=== PATIENT | female | born 1930 | race Caucasian/White ===

== ENCOUNTER 2018-08-27 06:01 | Inpatient (IN) | payer MEDICARE ==
--- NOTE | 2018-08-20 05:47 | HP ---
AMENDED REPORT NOW INCLUDES DESIGNATED COSIGNER CC: Dr. Jigna Sanders; Dr. Pollo Landeros; Dr. Loyd Beckett * ADMISSION HISTORY AND PHYSICAL: DATE OF ADMISSION: 08/27/18 ATTENDING SURGEON: Dr. Lucretia Morales.* (DICTATED BY MO CARCAMO) CHIEF COMPLAINT: Left breast cancer. HISTORY OF PRESENT ILLNESS: This is an 87-year-old female, who was first diagnosed with left breast cancer around February of 2017. She noted a lump in the left breast herself and biopsy confirmed carcinoma. She was treated with what sounds like tamoxifen initially but then there was obvious growth of the tumor and she was switched more recently to anastrozole. A recent CT of the chest, abdomen, and pelvis on 06/16/18 revealed a left breast mass measuring 7.7 x 5.7 cm as well as left axillary lymph nodes measuring up to 1.2 cm, which were not changed significantly from study from October of this year. Also noted were a few pulmonary nodules, which were less than 1 cm and which were without significant change from the prior study. A bone scan was performed on 06/24/18 , which was negative for metastatic bony disease. The patient had been deemed by her previous primary care provider as being too high a risk for mastectomy. More recently, the patient switched primary care providers to Dr. Pollo Landeros. A nuclear stress test was done on 06/18/18 which was a normal study and she has been cleared medically to proceed with surgery. She had been seen by Dr. Morales recently on 06/14/18 and again today to discuss the indications for surgery, the risks, benefits, and alternatives. The patient would like to proceed as scheduled with left mastectomy. PAST MEDICAL HISTORY: Left breast cancer; type 2 diabetes; hypertension; hyperlipidemia; osteoarthritis, particularly of the right hip (she is being considered for right hip replacement by Dr. Razo); history DVT of the left lower extremity, on chronic warfarin therapy; nephrolithiasis; recent recurrent UTIs with extended spectrum beta-lactamase E. coli. PAST SURGICAL HISTORY: Previous surgeries include open cholecystectomy, total hysterectomy with bilateral salpingo oophorectomy for benign disease, appendectomy, carpal tunnel release. CURRENT MEDICATIONS: 1. Warfarin 5 mg once daily (the patient instructed to hold after her 08/22/18 dose). 2. Torsemide 10 mg once daily. 3. Tradjenta 5 mg once daily. 4. Potassium citrate 10 mEq b.i.d. 5. Glimepiride 2 mg b.i.d. 6. Simvastatin 40 mg q. day. 7. Benadryl 25 mg 1 to 2 capsules q.6 hours p.r.n. 8. Jublia 10% topical for onychomycosis. 9. Tramadol 50 mg p.r.n. pain (uses up to twice daily primarily for arthritis pain). 10. Vitamin D 4000 International Units once daily. 11. Anastrozole 1 mg once daily. 12. Lisinopril 10 mg once daily. DRUG ALLERGIES: PERCOCET ([employer] side effects). SULFA, AUGMENTIN, and MACROBID have all caused itching and rash. IV CONTRAST has caused throat swelling. FAMILY HISTORY: Positive for breast and ovarian cancer in the niece. There is no known family history of anesthesia problems, bleeding or clotting disorder. SOCIAL HISTORY: The patient is currently living with her daughter. She denies use of tobacco, alcohol, or recreational drugs. REVIEW OF SYSTEMS: General: No recent constitutional symptoms or acute illnesses. She has been treated with 3 different oral antibiotics recently for ESBL UTI, but in each case, she has had significant reaction of rash and itching. She is not currently having any symptoms related to UTI and she was advised to contact Dr. Beckett's office for further recommendations. HEENT: No problems reported. Cardiovascular: Recent normal nuclear stress test. No chest pain or palpitations. Her stress test showed a normal ejection fraction. Respiratory: No chronic cough or shortness of breath. No history of PE though she has had history of thrombophlebitis and what sounds like the hypogastric vein though I did not review those records directly. She is on chronic maintenance anticoagulation. GI: No problems reported. : She has moderate- to-severe renal insufficiency based on lab work. She is being followed by Dr. Beckett for recent UTIs though is currently asymptomatic. Endocrine: She is treated for type 2 diabetes. No history of thyroid dysfunction. Her most recent A1c was 8.2. Integument: She has apparently a couple of pressure ulcers on the ischial areas bilaterally that the family has been treating with Desitin or zinc oxide. Hematological: She has had a mild anemia for the past few years. PHYSICAL EXAMINATION GENERAL: Well-nourished, obese female in no acute distress. VITAL SIGNS: Height 60 inches, weight 194 pounds. Temperature 98.4, blood pressure 148/82, pulse 90, respirations 18. HEENT: Pupils equal and round, reactive. EOMs intact. No conjunctival pallor. Oropharynx: Teeth in good repair. NECK: No lymphadenopathy or thyromegaly. LUNGS: Clear to auscultation. No rales or wheezes. HEART: Regular rate and rhythm. No murmur appreciated. ABDOMEN: Soft, nontender to palpation. No palpable masses or organomegaly. BREASTS: As previously described by Dr. Morales including large palpable mass in the left breast with more recently erosion of tumor to the skin level but without actual open draining or ulcerated lesion. BACK: No spinous process, tenderness, or CVA tenderness. EXTREMITIES: 1 to 2+ edema bilaterally, left somewhat greater than right by history. No open lesions on the feet. Distal pulses were not specifically examined on today's exam. GENITALIA/RECTAL: Not done specifically. NEUROLOGICAL: Grossly intact. She does ambulate with a rolling walker though gait was not specifically tested. SKIN: Warm and dry. No suspicious rashes or lesions noted. The area of the skin breakdown in the ischial areas is very superficial on the left, mostly with some scaling but no actual open lesion. On the right, there is an open area superficially measuring approximately 0.5 cm in diameter and without evidence of infection. IMPRESSION: Left breast cancer. PLAN: Left mastectomy. MO CARCAMO [id number]/[facility] #: [id number] [facility]ENTEREstella
[~2018-08-27 06:01] MED LIST: Buffered Lidocaine 0.9% SYRIN* 5 ML/SYR SYRINGE INTRADERM ONE; Famotidine IV* 10 MG/ML 2 ML (20 mg) IV ONE
--- OUTSIDE RECORDS SUMMARY | 2018-08-27 06:05 | XMS REPORT ---
:1930 External Reference #:[id number] Author Organization [employer] Address [address] [place] [address] Phone [phone] Care Team Providers Name Role Phone Pollo Landeros MD Primary Care Physician Unavailable Payers Type Date Identification Numbers Payment Provider Subscriber Medicare Primary Expires: Policy Number: Medicare [place] 2016 [id number] PayID: [id number] [address] [place] [address] Health Maintenance Policy Number: [employer] Medicare [place] [employer] (HMO) [id number] [employer] Group Number: [id number] [address] [address] PayID: [id number] [place] [address] Medigap Part B Expires: 10/18/2016 Policy Number: [facility] [place] [id number] PayID: [id number] [address] [address] TEQUILA Ochoa [address] Medigap Part B Expires: 10/18/2016 Policy Number: [facility] [place] [id number] Ppo PayID: [id number] [address] [address] TEQUILA Nugent [address] Problems Date Description Provider Status Onset: 05/22/2017 Localized, 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 On Warfarin. Family History Date Family Member(s) Problem(s) Comments General Diabetes General Heart Disease General Hypertension General Stroke General Cancer Father due to IA () - Age 62 Father Heart Disease Mother due to Diabetes () Mother Diabetes Type II First Son 64 First Son Diabetes First Son Deep Venous Thrombosis (DVT) Second Son 52 Second Son IA Second Son Stroke First Daughter 61 First Daughter No Current Problems Second Daughter 60 Second Daughter No Current Problems Third Daughter 54 Third Daughter No Current Problems Siblings 4 3 now Second Brother due to Prostate Cancer () First Sister 89 First Sister No Current Problems Second Sister 87 Second Sister Coronary Artery Disease (CAD) Social History Type Date Description Comments Marital Status Lives With Daughter Occupation Retired Cigarette Use Never Smoked Cigarettes ETOH Use 07/22/2018 Denies alcohol use Smoking Patient has never smoked Recreational Drug Use Denies Drug Use Exercise Type/Frequency Does not exercise Allergies, Adverse Reactions, Alerts Date Description Reaction Status Severity Comments 02/26/2017 Percocet confusion and agitation active 05/22/2017 Iodine Contrast Anaphylaxis, Urticaria active 06/09/2018 Bactrim dizziness, jittery active sensation 08/19/2018 Augmentin active rash itching 08/19/2018 Sulfa Antibiotics active rash itching 08/19/2018 Macrobid active rash itching Medications Medication Date Status Form Strength Qnty SIG Indications Ordering Provider Torsemide 07/22/ Active Tablets 10mg 30tabs 1 by mouth Pollo 2017 every day Kristie Landeros M.D.,FACP Tradjenta 06/28/ Active Tablets 5mg 30tabs Take one Pollo 2018 tablet by yared Santiago.Kristie,FACP daily. Freestyle 06/18/ Active Strips 100uni test up to E11.9 Karen Lite Test 2018 ts three Cotton, times M.D. daily last visit: 06/09/18 Freestyle 06/18/ Active Device 1units test blood E11.9 Karen Lite Blood 2018 sugar 3 Cotton, Glucose times M.D. Monitoring daily last System visit: 06/09/18 Freestyle 06/18/ Active Misc 100uni test three E11.9 Karen Zhang 2018 ts times Santos, daily last M.D. visit: 06/09/18 Nystatin-Tria 06/09/ Active Cream 438473-3.1 15gm apply to L30.4 Maryann love 2018 Unit/GM-% breast 2-3 Van. Leti, times M.DKam,FACP daily until symptoms resolve. Tramadol HCL 05/22/ Active Tablets 50mg 45tabs 1/2 to 1 M25.551 Kina 2016 tablet by Jose Razo mouth every 4 hours as needed pain Simvastatin / Active Tablets 40mg take 1 Unknown 0000 tablet by mouth at bedtime Glimepiride / Active Tablets 2mg 180tab 1 by mouth Pollo 0000 s twice Kristie Landeros, daily M.DKam,FACP Potassium / Active Tablets ER 10Meq 1 tablet Unknown Citrate ER 0000 (1080 mg) by mouth twice a day Lisinopril / Active Tablets 10mg 90tabs 1 by mouth Karen every day Jose Graham Warfarin / Active Tablets 5mg take as Unknown Sodium 0000 directed Anastrozole / Active Tablets 1mg once daily Unknown 0000 Vitamin D / Active Capsules 4000Unit 1 by mouth Unknown (Ergocalcifer 0000 every day ol) Jublia / Active Solution 10% apply once Unknown 0000 daily Benadryl / Active Tablets 25mg take Unknown Allergy 0000 one-two tablet every 6 hours as needed for itch/ rash Tradjenta 06/28/ Hx Tablets 5mg 30tabs Take one Pollo 2017 - tablet by Kristie Landeros, 06/28/ mouth MCaren,FACP 2018 daily. Tradjenta 06/25/ Hx Tablets 5mg 30tabs 1 by mouth Karen 2017 - every day Santos 06/28/ Jose 2018 Furosemide 07/06/ Hx 12.5 Kina 2016 - Jose Razo 2017 Fish Oil / Hx Capsules 1000mg 1 by mouth Unknown 0000 every day Womens One 00/00/ Hx Tablets 1 by mouth Unknown Daily 0000 every day (on occassion) Lisinopril /00/ Hx Tablets 10mg 1 by mouth Unknown 0000 - every day 2016 Naproxen 00/ Hx Tablets 500mg 1 tablet Unknown 0000 - with food 07/05/ by mouth 2016 twice a day Mobic 00/ Hx Tablets 15mg once daily Unknown 0000 with food Hydrocodone-A / Hx Tablets 5-325mg 1-2 tabs Unknown cetaminophen 0000 by mouth every 4- 6 hours as needed pain Tomoxifin /00/ Hx Unknown 0000 Warfarin 00/ Hx Unknown Sodium 0000 Tamoxifen 00/ Hx Tablets 20mg Unknown Citrate 0000 - 2017 Naproxen 00/ Hx Tablets 500mg 1 tablet Unknown 0000 with food by mouth twice a day Torsemide / Hx Tablets 5mg 1 by mouth Unknown 0000 - every day 2017 Medications Administered in Office Medication Date Status Form Strength Qnty SIG Indications Ordering Provider Inj, Administered Injection John D. Regadenoson, 018 Jose Pope 0.1 MG Technetium TC Administered Injection John Flowers 99M 018 Jose Pope Tetrofosmin, Per Unit Dose Up To 40 Millicuries Immunizations CPT Code Status Date Vaccine Lot # [id number] Given 07/22/2018 Influenza Virus Vaccine, Quadrivalent, Split, [id number] Preservative Free Vital Signs Date Vital Result Comment 08/19/2018 Height 60 inches 5'0" Weight 194.00 lb Heart Rate 90 /min BP Systolic Sitting 148 mmHg BP Diastolic Sitting 82 mmHg Respiratory Rate 18 /min Body Temperature 98.4 F BMI (Body Mass Index) 37.9 kg/m2 07/22/2018 Weight 194.00 lb Heart Rate 74 /min BP Systolic Sitting 138 mmHg BP Diastolic Sitting 80 mmHg Body Temperature 98.7 F O2 % BldC Oximetry 97 % 06/14/2018 Heart Rate 76 /min Respiratory Rate 18 /min Body Temperature 99.7 F 06/09/2018 Height 60 inches 5'0" Weight 182.00 lb Heart Rate 58 /min BP Systolic 130 mmHg BP Diastolic 62 mmHg O2 % BldC Oximetry 94 % BMI (Body Mass Index) 35.5 kg/m2 08/04/2017 Heart Rate 80 /min Respiratory Rate 16 /min Body Temperature 99.0 F 07/06/2017 Height 60 inches 5'0" Weight 194.00 lb Heart Rate 83 /min BP Systolic 173 mmHg BP Diastolic 71 mmHg Body Temperature 97.7 F BMI (Body Mass Index) 37.9 kg/m2 05/22/2017 Height 60 inches 5'0" Weight 200.00 lb Heart Rate 76 /min BP Systolic 173 mmHg BP Diastolic 80 mmHg Body Temperature 99.0 F Pain Level 6 BMI (Body Mass Index) 39.1 kg/m2 03/31/2017 Heart Rate 72 /min Respiratory Rate 18 /min Body Temperature 98.3 F 03/05/2017 Heart Rate 84 /min BP Systolic 150 mmHg BP Diastolic 80 mmHg Respiratory Rate 18 /min Body Temperature 98.4 F 03/02/2017 Height 61 inches 5'1" Weight 197.00 lb Heart Rate 78 /min BP Systolic 138 mmHg BP Diastolic 88 mmHg Respiratory Rate 16 /min Body Temperature 98.7 F BMI (Body Mass Index) 37.2 kg/m2 Results Test Date Test Result H/L Range Note Urine Microalbumin Random 08/16/2018 Ur Microalbumin (mg/L) 25.0 Urine Creatinine 106.74 mg/dL Urine Microalbumin/Creatinine 23.4 <31 Lipid Profile (Trig/Chol/HDL) 08/16/2018 Triglycerides 240 mg/dL 1 Cholesterol 148 mg/dL 2 HDL Cholesterol 40.1 mg/dL 3 LDL Cholesterol 60 mg/dL 4 Basic Metabolic Panel 08/16/2018 Sodium 135 mmol/L 135-145 Potassium 4.4 mmol/L 3.5-5.0 Chloride 101 mmol/L 101-111 Co2 Carbon Dioxide 25 mmol/L 22-32 Anion Gap 9 mmol/L 2-11 Glucose 103 mg/dL High 70-100 Blood Urea Nitrogen 31 mg/dL High 6-24 Creatinine 1.63 mg/dL High 0.51-0.95 BUN/Creatinine Ratio 19.0 8-20 Calcium 8.8 mg/dL 8.6-10.3 Egfr Non- 29.9 >60 Egfr 36.2 >60 5 Laboratory test finding 08/16/2018 Hemoglobin A1c (Glyco 8.2 % High 4.0- 5.6 6 HGB) Laboratory test finding 06/11/2018 Hemoglobin A1c (Glyco 8.3 % High 4.0- 5.6 7 HGB) CBC Auto Diff 06/11/2018 White Blood Count 7.8 10^3/uL 3.5-10.8 Red Blood Count 3.60 10^6/uL Low 4.00-5.40 Hemoglobin 10.9 g/dL Low 12.0-16.0 Hematocrit 32 % Low 35-47 Mean Corpuscular Volume 90 fL 80-97 Mean Corpuscular Hemoglobin 30 pg 27-31 Mean Corpuscular HGB Conc 34 g/dL 31-36 Red Cell Distribution Width 14 % 10.5-15 Platelet Count 225 10^3/uL 150-450 Mean Platelet Volume 8.7 um3 7.4-10.4 Abs Neutrophils 5.1 10^3/uL 1.5-7.7 Abs Lymphocytes 2.2 10^3/uL 1.0-4.8 Abs Monocytes 0.4 10^3/uL 0-0.8 Abs Eosinophils 0.1 10^3/uL 0-0.6 Abs Basophils 0 10^3/uL 0-0.2 Abs Nucleated RBC 0 10^3/uL Granulocyte % 64.8 % 38-83 Lymphocyte % 27.5 % 25-47 Monocyte % 5.7 % 0-7 Eosinophil % 1.7 % 0-6 Basophil % 0.3 % 0-2 Nucleated Red Blood Cells % 0.1 Comp Metabolic Panel 06/11/2018 Sodium 137 mmol/L 135-145 Potassium 4.3 mmol/L 3.5-5.0 Chloride 102 mmol/L 101-111 Co2 Carbon Dioxide 26 mmol/L 22-32 Anion Gap 9 mmol/L 2-11 Glucose 193 mg/dL High 70-100 Blood Urea Nitrogen 33 mg/dL High 6-24 Creatinine 1.31 mg/dL High 0.51-0.95 BUN/Creatinine Ratio 25.2 High 8-20 Calcium 8.9 mg/dL 8.6-10.3 Total Protein 6.4 g/dL 6.4-8.9 Albumin 3.5 g/dL 3.2-5.2 Globulin 2.9 g/dL 2-4 Albumin/Globulin Ratio 1.2 1-3 Total Bilirubin 0.40 mg/dL 0.2-1.0 Alkaline Phosphatase 55 U/L 34-104 Alt 8 U/L 7-52 Ast 14 U/L 13-39 Egfr Non- 38.5 >60 Egfr 46.6 >60 8 Inr/Protime 03/22/2018 Inr 3.02 High 0.77-1.02 Inr/Protime 11/16/2017 Inr 2.13 High 0.77-1.02 Inr/Protime 10/29/2017 Inr 2.15 High 0.77-1.02 9 CBC Auto Diff 10/29/2017 White Blood Count 7.8 10^3/uL 3.5-10.8 9 Red Blood Count 3.79 10^6/uL Low 4.0-5.4 9 Hemoglobin 11.7 g/dL Low 12.0-16.0 9 Hematocrit 36 % 35-47 9 Mean Corpuscular Volume 94 fL 80-97 9 Mean Corpuscular Hemoglobin 31 pg 27-31 9 Mean Corpuscular HGB Conc 33 g/dL 31-36 9 Red Cell Distribution Width 15 % 10.5-15 9 Platelet Count 201 10^3/uL 150-450 9 Mean Platelet Volume 9 um3 7.4-10.4 9 Abs Neutrophils 5.2 10^3/uL 1.5-7.7 9 Abs Lymphocytes 2.1 10^3/uL 1.0-4.8 9 Abs Monocytes 0.3 10^3/uL 0-0.8 9 Abs Eosinophils 0.1 10^3/uL 0-0.6 9 Abs Basophils 0.1 10^3/uL 0-0.2 9 Abs Nucleated RBC 0 10^3/uL 9 Granulocyte % 66.5 % 38-83 9 Lymphocyte % 27.1 % 25-47 9 Monocyte % 4.4 % 1-9 9 Eosinophil % 1.3 % 0-6 9 Basophil % 0.7 % 0-2 9 Nucleated Red Blood Cells % 0.2 9 Comp Metabolic Panel 10/29/2017 Sodium 134 mmol/L 133-145 9 Potassium 4.2 mmol/L 3.5-5.0 9 Chloride 100 mmol/L Low 101-111 9 Co2 Carbon Dioxide 24 mmol/L 22-32 9 Anion Gap 10 mmol/L 2-11 9 Glucose 152 mg/dL High 70-100 9 Blood Urea Nitrogen 25 mg/dL High 6-24 9 Creatinine 1.38 mg/dL High 0.51-0.95 9 BUN/Creatinine Ratio 18.1 8-20 9 Calcium 9.0 mg/dL 8.6-10.3 9 Total Protein 6.9 g/dL 6.4-8.9 9 Albumin 3.7 g/dL 3.2-5.2 9 Globulin 3.2 g/dL 2-4 9 Albumin/Globulin Ratio 1.2 1-3 9 Total Bilirubin 0.40 mg/dL 0.2-1.0 9 Alkaline Phosphatase 51 U/L 34-104 9 Alt 8 U/L 7-52 9 Ast 13 U/L 13-39 9 Egfr Non- 36.3 >60 9 Egfr 46.7 >60 9, 10 Inr/Protime 08/17/2017 Inr 2.39 High 0.89-1.11 Laboratory test finding 08/17/2017 TSH (Thyroid Stim 9.33 mcIU/mL High 0.34-5.60 11 Horm) Hemoglobin A1c (Glyco HGB) 8.2 % High 4.0-5.6 12 Iron & Iron Binding Capacity 08/17/2017 Iron 49 g/dL Low 50-212 Unsaturated Iron Binding 242 g/dL Total Iron Binding Capacity 291 g/dL 250-450 % Iron Saturation 17 % 15-55 Lipid Profile (Trig/Chol/HDL) 08/17/2017 Triglycerides 220 mg/dL 13 Cholesterol 155 mg/dL 14 HDL Cholesterol 47.0 mg/dL 15 LDL Cholesterol 64 mg/dL 16 Comp Metabolic Panel 08/17/2017 Sodium 136 mmol/L 133-145 Potassium 4.3 mmol/L 3.5-5.0 Chloride 103 mmol/L 101-111 Co2 Carbon Dioxide 23 mmol/L 22-32 Anion Gap 10 mmol/L 2-11 Glucose 158 mg/dL High 70-100 Blood Urea Nitrogen 25 mg/dL High 6-24 Creatinine 1.22 mg/dL High 0.51-0.95 BUN/Creatinine Ratio 20.5 High 8-20 Calcium 9.0 mg/dL 8.6-10.3 Total Protein 6.6 g/dL 6.4-8.9 Albumin 3.8 g/dL 3.2-5.2 Globulin 2.8 g/dL 2-4 Albumin/Globulin Ratio 1.4 1-3 Total Bilirubin 0.50 mg/dL 0.2-1.0 Alkaline Phosphatase 62 U/L 34-104 Alt 7 U/L 7-52 Ast 11 U/L Low 13-39 Egfr Non- 41.9 >60 Egfr 53.9 >60 17 CBC Auto Diff 08/17/2017 White Blood Count 8.5 10^3/uL 3.5-10.8 Red Blood Count 3.88 10^6/uL Low 4.0-5.4 Hemoglobin 11.6 g/dL Low 12.0-16.0 Hematocrit 35 % 35-47 Mean Corpuscular Volume 91 fL 80-97 Mean Corpuscular Hemoglobin 30 pg 27-31 Mean Corpuscular HGB Conc 33 g/dL 31-36 Red Cell Distribution Width 14 % 10.5-15 Platelet Count 258 10^3/uL 150-450 Mean Platelet Volume 9 um3 7.4-10.4 Abs Neutrophils 5.1 10^3/uL 1.5-7.7 Abs Lymphocytes 2.6 10^3/uL 1.0-4.8 Abs Monocytes 0.5 10^3/uL 0-0.8 Abs Eosinophils 0.2 10^3/uL 0-0.6 Abs Basophils 0.1 10^3/uL 0-0.2 Abs Nucleated RBC 0.01 10^3/uL Granulocyte % 60.2 % 38-83 Lymphocyte % 30.9 % 25-47 Monocyte % 5.9 % 1-9 Eosinophil % 2.1 % 0-6 Basophil % 0.9 % 0-2 Nucleated Red Blood Cells % 0.1 Inr/Protime 08/13/2017 Inr 3.61 High 0.89-1.11 Basic Metabolic Panel 06/25/2017 Sodium 135 mmol/L 133-145 Potassium 4.6 mmol/L 3.5-5.0 Chloride 105 mmol/L 101-111 Co2 Carbon Dioxide 22 mmol/L 22-32 Anion Gap 8 mmol/L 2-11 Glucose 206 mg/dL High 70-100 Blood Urea Nitrogen 33 mg/dL High 6-24 Creatinine 1.31 mg/dL High 0.51-0.95 BUN/Creatinine Ratio 25.2 High 8-20 Calcium 8.9 mg/dL 8.6-10.3 Egfr Non- 38.6 >60 Egfr 49.6 >60 18 Laboratory test finding 03/09/2017 Blood Urea Nitrogen BUN 29 mg/dL High 6 -24 Creatinine 03/09/2017 Creatinine 1.27 mg/dL High 0.51-0.95 Egfr Non- 40.0 >60 Egfr 51.4 >60 19 Laboratory test finding 03/05/2017 Cytology Non-Associate Merchandiser SEE RESULT BELOW 20 , 21 Laboratory test finding 03/02/2017 Cytology Non-Associate Merchandiser SEE RESULT BELOW 22 1 Desirable: <150 Borderline High: 150-199 High: 200-499 Very High: >500 2 Desirable: <200 Borderline High: 200-239 High: >239 3 Low: <40 Desirable: 40-60 High: >60 4 Desirable: <100 Near Optimal: 100-129 Borderline High: 130-159 High: 160-189 Very High: >189 5 Because ethnic data is not always readily available, this report includes an eGFR for both -Americans and non- Americans. The National Kidney Disease Education Program (NKDEP) does not endorse the use of the MDRD equation for patients that are not between the ages of 18 and 70, are , have extremes of body size, muscle mass, or nutritional status, or are non- or non-. According to the National Kidney Foundation, irrespective of diagnosis, the stage of the disease is based on the level of kidney function: Stage Description GFR(mL/min/1.73 m(2)) 1 Kidney damage with normal or decreased GFR 90 2 Kidney damage with mild decrease in GFR 60-89 3 Moderate decrease in GFR 30-59 4 Severe decrease in GFR 15-29 5 Kidney failure <15 (or dialysis) 6 Therapeutic target for the treatment of diabetes mellitus patients is <7% HBA1C, and in selective patients <6.0%. Please refer to [place] [employer] diabetic care guidelines for further information. 7 Therapeutic target for the treatment of diabetes mellitus patients is <7% HBA1C, and in selective patients <6.0%. Please refer to [place] [employer] diabetic care guidelines for further information. 8 Because ethnic data is not always readily available, this report includes an eGFR for both -Americans and non- Americans. The National Kidney Disease Education Program (NKDEP) does not endorse the use of the MDRD equation for patients that are not between the ages of 18 and 70, are , have extremes of body size, muscle mass, or nutritional status, or are non- or non-. According to the National Kidney Foundation, irrespective of diagnosis, the stage of the disease is based on the level of kidney function: Stage Description GFR(mL/min/1.73 m(2)) 1 Kidney damage with normal or decreased GFR 90 2 Kidney damage with mild decrease in GFR 60-89 3 Moderate decrease in GFR 30-59 4 Severe decrease in GFR 15-29 5 Kidney failure <15 (or dialysis) 9 System Event: N 10 Because ethnic data is not always readily available, this report includes an eGFR for both -Americans and non- Americans. The National Kidney Disease Education Program (NKDEP) does not endorse the use of the MDRD equation for patients that are not between the ages of 18 and 70, are , have extremes of body size, muscle mass, or nutritional status, or are non- or non-. According to the National Kidney Foundation, irrespective of diagnosis, the stage of the disease is based on the level of kidney function: Stage Description GFR(mL/min/1.73 m(2)) 1 Kidney damage with normal or decreased GFR 90 2 Kidney damage with mild decrease in GFR 60-89 3 Moderate decrease in GFR 30-59 4 Severe decrease in GFR 15-29 5 Kidney failure <15 (or dialysis) 11 [id number] 12 Therapeutic target for the treatment of diabetes mellitus patients is <7% HBA1C, and in selective patients <6.0%. Please refer to [place] [employer] diabetic care guidelines for further information. 13 Desirable: <150 Borderline High: 150-199 High: 200-499 Very High: >500 14 Desirable: <200 Borderline High: 200-239 High: >239 15 Low: <40 Desirable: 40-60 High: >60 16 Desirable: <100 Near Optimal: 100-129 Borderline High: 130-159 High: 160-189 Very High: >189 17 Because ethnic data is not always readily available, this report includes an eGFR for both -Americans and non- Americans. The National Kidney Disease Education Program (NKDEP) does not endorse the use of the MDRD equation for patients that are not between the ages of 18 and 70, are , have extremes of body size, muscle mass, or nutritional status, or are non- or non-. According to the National Kidney Foundation, irrespective of diagnosis, the stage of the disease is based on the level of kidney function: Stage Description GFR(mL/min/1.73 m(2)) 1 Kidney damage with normal or decreased GFR 90 2 Kidney damage with mild decrease in GFR 60-89 3 Moderate decrease in GFR 30-59 4 Severe decrease in GFR 15-29 5 Kidney failure <15 (or dialysis) 18 Because ethnic data is not always readily available, this report includes an eGFR for both -Americans and non- Americans. The National Kidney Disease Education Program (NKDEP) does not endorse the use of the MDRD equation for patients that are not between the ages of 18 and 70, are , have extremes of body size, muscle mass, or nutritional status, or are non- or non-. According to the National Kidney Foundation, irrespective of diagnosis, the stage of the disease is based on the level of kidney function: Stage Description GFR(mL/min/1.73 m(2)) 1 Kidney damage with normal or decreased GFR 90 2 Kidney damage with mild decrease in GFR 60-89 3 Moderate decrease in GFR 30-59 4 Severe decrease in GFR 15-29 5 Kidney failure <15 (or dialysis) 19 Because ethnic data is not always readily available, this report includes an eGFR for both -Americans and non- Americans. The National Kidney Disease Education Program (NKDEP) does not endorse the use of the MDRD equation for patients that are not between the ages of 18 and 70, are , have extremes of body size, muscle mass, or nutritional status, or are non- or non-. According to the National Kidney Foundation, irrespective of diagnosis, the stage of the disease is based on the level of kidney function: Stage Description GFR(mL/min/1.73 m(2)) 1 Kidney damage with normal or decreased GFR 90 2 Kidney damage with mild decrease in GFR 60-89 3 Moderate decrease in GFR 30-59 4 Severe decrease in GFR 15-29 5 Kidney failure <15 (or dialysis) 20 [id number] 21 SEE RESULT BELOW Name: [place] : [address]: Lucretia Morales MD Acct: [id number] Unit: [id number] AGE: 86 Location: [facility] Re03/05/17 SEX: F Status: REG REF SPEC: [id number] BERYL: 03/05/17-[address]: Lucretia Morales MD REQ: [id number] RECD: 03/05/17 STATUS: SOUT _ ORDERED: LEVEL 4, IMMUNO-QUANT/3 COMMENTS: [id number] FINAL DIAGNOSIS Breast, left, fine needle aspiration, cell block: -- Adenocarcinoma; see comment. COMMENT: Immunohistochemical stains, with appropriately reacting controls, were performed with the following results: ER strongly positive, nearly 100% of tumor cells IN negative HER-2/bret negative (0+) BREAST LEFT - FINE NEEDLE ASPIRATION LEFT BREAST MASS CLINICAL HISTORY Recent breast cancer diagnosis by [facility] GROSS DESCRIPTION 20 ml markedly blood formalin, needle rinse in formalin for cell block. Signed (signature on file) Shalini Zamorano MD 1222 END OF REPORT * ML=Testing performed at Main Lab DEPARTMENT OF PATHOLOGY, [address] [place] [address] Duarte Malin M.D. Director [facility]GAR # [id number] 22 SEE RESULT BELOW Name: [place] : [address]: Lucretia Morales MD Acct: [id number] Unit: [id number] AGE: 86 Location: [facility] Re03/02/17 SEX: F Status: REG REF SPEC: [id number] BERYL: 03/02/17-[address]: Lucretia Morales MD REQ: [id number] RECD: 03/02/179260 STATUS: SOUT _ [facility] COMMENTS: [id number] FINAL DIAGNOSIS Breast, left, fine needle aspiration: --Malignant- adenocarcinoma. COMMENT: Dr. Malin reviewed this case in intradepartmental consultation and agrees with the diagnosis. BREAST LEFT - LEFT BREAST FINE NEEDLE ASPIRATION CLINICAL HISTORY Left breast. GROSS DESCRIPTION 2 Alcohol fixed slide(s) received from clinician and Needle rinse in CytoLyt solution for thin layer non-online marketing manager test.(turbid pink) Signed (signature on file) Shalini Zamorano MD 1219 END OF REPORT * ML=Testing performed at Main Lab DEPARTMENT OF PATHOLOGY, [address] [place] [address] Duarte Malin M.D. Director [facility] # [id number] Procedures Date CPT Code Description Status 06/18/2018 87668 Stress Test Completed 06/18/2018 59277 Myocardial Perfusion Imaging Tomographic (Spect) Completed Multiple Studies 06/09/2018 41629 EKG Tracing & Interpretation Completed 03/05/2017 13170 Fine Needle Aspiration; W/O Imaging Guidance Completed 03/02/2017 80762 Fine Needle Aspiration; W/O Imaging Guidance Completed 01/16/2014 44661 ECHO Transthorasic Realtime 2D W Doppler & Color Flow Completed Hosp 01/16/2014 54267 EKG, Interpretation Only Completed 01/15/2014 96574 EKG, Interpretation Only Completed Encounters Type Date Location Provider [facility] E/M Dx Office Visit 07/22/2018 4:20p [facility] Internal Medicine Pollo Landeros, [address] E11.9 - [place] Garcia,FACP I10 C50.412 Z23 Office Visit 06/14/2018 3:00p [facility], 26394 C50.412 Stevie ECHEVERRIA Office Visit 06/09/2018 1:00p [facility] Internal Medicine Jenny Zuhair, [address] E11.[address] - [address] RPA-C M16.11 C50.412 E78.5 I10 R06.02 L89.302 L30.4 I82.812 Z01.818 Office Visit 08/04/2017 2:45p [facility], 32305 C50.412 Stevie ECHEVERRIA Office Visit 07/06/2017 3:30p [facility] Razo M.D. 41141 M25.551 C.M.AKam M16.11 C50.412 N63 Office Visit 05/22/2017 1:30p [facility] R[facility] M.D. 91433 M25.551 Rey M25.552 M16.11 M16.12 C50.412 Office Visit 03/31/2017 9:00a [facility], 33941 C50.412 Stevie ECHEVERRIA Office Visit 03/02/2017 2:00p [facility], 67974 N63 Stevie ECHEVERRIA Office Visit 03/11/2014 3:23p [facility], [place], [address] 595.0 Hospitalists MCaren 995.91 250.00 593.5 Office Visit 03/10/2014 8[facility]07[facility] [place], [address] 595.0 Hospitalists Jose 995.91 250.00 593.5 Office Visit 03/09/2014 8:07a [facility], [place], [address] 595.0 Hospitalists MCaren 995.91 250.00 Office Visit 03/08/2014 [facility] [facility] [place] [address] 595.0 Assoc, Hospitalюлия Garcia [phone] Office Visit 01/18/2014 3:33p [facility], Miki Díaz [id number] 595.0 Hospitalists Jose Wilder 995.91 [phone] Office Visit 01/17/2014 3:32p [facility] [place] [facility]az [address]657 595.0 Hospitalists Jose Wilder 995.91 [phone] Office Visit 01/16/2014 3:32p [facility], Eduarda Gonzalez, 31608 595.0 Hospitalists Jose 995.91 592.0 411.89 Office Visit 01/15/2014 3:31p [facility], Eduarda Gonzalez, 88398 595.0 Hospitalists Jose 995.91 592.0 411.89 Plan of Care Future Appointment(s):09/06/2018 2:00 pm - Yasmani Jean PA at [facility]08/30/2018 11:15 am - MO Bang at [facility]08/27/2018 8:00 am - Lisa Peña MD at [facility]08/27/2018 8:00 am - Lucretia Morales MD at 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
[2018-08-27] MEDS ORDERED: Famotidine IV* 10 MG/ML 2 ML (20 mg) ONE (06:11)
[2018-08-27] MEDS ORDERED: ceFAZolin 2 GM PREMIX in ORs 2 GM/50 ML BAG IVPB ONE (06:11)
[2018-08-27] MEDS ORDERED: Heparin VIAL(*) 5000 UNITS/ML VIAL (FIVE THOUSAND) ONE (06:11)
[2018-08-27] MEDS ORDERED: Bupivacaine 0.5% SDV PF* 30ML VIAL ONE (06:56)
[2018-08-27] MEDS ORDERED: Bupivacaine 0.25% W/EPI* 10 ML SDV ONE (06:56)
[2018-08-27] MEDS ORDERED: Lidocaine 2% PF * 5 ML VIAL ONE (07:19)
[2018-08-27] MEDS ORDERED: Midazolam* 1 MG/ML 5 ML VIAL (5 MG) ONE (07:19)
[2018-08-27] MEDS ORDERED: Dexamethasone IV* 4 MG/ML 1 ML (4 MG) ONE (07:19)
[2018-08-27] MEDS ORDERED: fentaNYL* 50 MCG/ML 2 ML VIAL (100 MCG VIAL) ONE ×4 (07:19→10:42)
[2018-08-27] MEDS ORDERED: KETAMINE HCL* 50 MG/ML 10 ML VIAL ONE (07:19)
[2018-08-27] MEDS ORDERED: Ondansetron INJ* 2 MG/ML VIAL ONE (07:19)
[2018-08-27] MEDS ORDERED: Propofol* 10 MG/ML 20 ML BTL IV PUSH ONE (07:19)
[2018-08-27] MEDS ORDERED: Morphine VIAL* 4 MG/ML VIAL (1 ml vial) IV ONE (07:20)
[2018-08-27] MEDS ORDERED: EPHEDrine (Pressors)* 50 MG/ML VIAL ONE (07:59)
[2018-08-27] MEDS ORDERED: Naloxone* 0.4 MG/ML 1 ML VIAL IV PRN (08:46)
[2018-08-27] MEDS ORDERED: Ondansetron INJ* 2 MG/ML VIAL IV PRN ×2 (08:46→12:18)
[2018-08-27] MEDS ORDERED: DiMENhydriNATE IV* 50 MG/ML VIAL IV PUSH PRN (08:46)
[2018-08-27] MEDS ORDERED: Acetaminophen IV 1GM/100ML * 1,000 MG/100 ML VIAL IVPB ONE (08:46)
[2018-08-27] MEDS ORDERED: Ketorolac INJ* 30 MG/ML 1 ML VIAL ONE (09:14)
[2018-08-27] MEDS ORDERED: Acetaminophen IV 1GM/100ML * 100 ML ONE (09:24)
[2018-08-27] MEDS ORDERED: traMADol TAB* 50 MG PO PRN (10:34)
--- NOTE | 2018-08-27 10:39 | BRIEFOPN ---
Brief Operative Note - Surgery Procedures: Procedures INJECT ANTICOAGULANT (03/08/14) RETROGRADE PYELOGRAM (03/08/14) ULTRASON FRAGMENT-STONE (03/08/14) URETERAL CATHETERIZATION (03/08/14) 08/27/18 Op note Pre-op dx: left breast cancer Post-op dx: same Procedure: left mastectomy surgeon: Andrew Peña Anesth: general EBL: 50 cc Complications: none SCDs on during surgery Abx: given pre-op CLFoster
[2018-08-27] MEDS: fentaNYL* 50 MCG/ML 2 ML VIAL (100 MCG VIAL) IV PRN ×3 (10:44→11:12)
[2018-08-27] MEDS ORDERED: Ibuprofen TAB* 600 MG PO PRN (12:18)
[2018-08-27] MEDS ORDERED: diPHENhydraMINE PO* 25 MG PO PRN (12:18)
[2018-08-27] MEDS ORDERED: traMADol TAB* 50 MG ONE (12:58)
[2018-08-27] MEDS: traMADol TAB* 50 MG PO PRN ×2 (13:01→19:11)
[2018-08-27] MEDS: Atorvastatin* 20 MG TAB PO SCH (17:31)
[2018-08-27] MEDS: Acetaminophen TAB* 325 MG PO PRN ×2 (17:31→23:04)
[2018-08-27] MEDS: Lisinopril TAB* 10 MG PO SCH (17:31)
[2018-08-27] MEDS: CMCS:Glimepiride (NF) 2 MG TAB PO SCH (17:32)
[2018-08-27] MEDS: PTO:Potassium Citrate (NF) 10 MEQ TAB PO SCH (20:18)
[2018-08-27] MEDS ORDERED: PTO: Potassium Citrate (NF) 10 MEQ TAB PO SCH (21:00)
[2018-08-27] MEDS ORDERED: GLIMEPIRIDE 2 MG PO SCH (21:00)
[2018-08-27] MEDS ORDERED: Insulin LISPRO* 1 UNITS UNIT SUBCUT ONE (23:45)
--- NOTE | 2018-08-28 01:25 | OP ---
[facility]: [facility]; Dr. Jigna Sanders; MO Peterson OPERATIVE REPORT: DATE OF OPERATION: 08/27/18 DATE OF : 32 SURGEON: Lucretia Morales MD LEAD SECURITY OFFICER: Dr. Peña. PRE-OP DIAGNOSIS: Left breast cancer. POST-OP DIAGNOSIS: Left breast cancer. OPERATIVE PROCEDURE: Left mastectomy. INDICATIONS: Ms. Mortensen is an 87-year-old woman with a large unknown breast cancer who has been u ndergoing neoadjuvant hormonal therapy, which has not made a lot of change recently, prompting the pl an for surgical intervention. DESCRIPTION OF PROCEDURE: She was brought to the operating room and placed on the OR table in a supi ne position and given general anesthesia. The left breast was prepped and draped in the usual steril e fashion. An incision was made in the superior breast to encompass the mass and the nipple-areolar complex and subcutaneous tissue was divided with electrocautery to create flaps medially to the fr[place] um, superiorly to the clavicle and laterally to the latissimus dorsi muscle. Then an inferior incisio n was made creating an ellipse around the nipple-areolar complex and the mass. Again, subcutaneous t issue was divided with electrocautery medially to the sternum, inferiorly to the rectus muscle and la terally to the latissimus dorsi muscle. Breast was then elevated off the chest wall using electrocau ciera, attempted to include some muscle fibers in the region under the mass. Once the breast was off the chest wall, it was handed off as a specimen with the usual markings. Attention was then turned t o closing the incision. It appeared that the cosmetic closure would involved drawing some of the lat eral skin up into the wound creating a Y-shaped closure. In order to do this, some excess skin was r emoved superiorly and inferiorly and handed off as a specimen. The 2-0 Vicryl was used to reapproxim ate the subcutaneous tissue and then 3-0 Vicryl was used to complete the reapproximation of the subcu taneous tissue in between the sterile stitches and then the skin was closed with 4-0 Vicryl in a subc uticular fashion in order to make the closure as full as possible in the lateral aspect. Some additio nal skin was removed from the inferior aspect of the transversely oriented y. Steri-Strips and a dry fluffy dressing were applied after a EMILY drain was placed through the stab wound in the anterior axil mary carmen line and placed under the skin flaps. Some local was instilled through the EMILY drain and allowed to dehisce the cavity. An Miko wrap was placed around the chest. All sponge and instrument counts w ere correct. The patient tolerated the procedure well and was transferred to Recovery in a stable co ndition. [id number]/[facility] #: [id number]
[2018-08-28] MEDS: Acetaminophen TAB* 325 MG PO PRN ×4 (02:56→17:35)
[2018-08-28] MEDS: traMADol TAB* 50 MG PO PRN ×4 (02:56→22:52)
[2018-08-28] MEDS: PTO:Potassium Citrate (NF) 10 MEQ TAB PO SCH ×2 (08:06→20:41)
[2018-08-28] MEDS: PTO:Linagliptin (NF) 5 MG TAB PO SCH (08:06)
[2018-08-28] MEDS: CMCS:Anastrozole (NF) 1 MG TAB PO SCH (08:06)
[2018-08-28] MEDS: CMCS:Glimepiride (NF) 2 MG TAB PO SCH ×2 (08:07→17:35)
[2018-08-28] MEDS: Torsemide TAB* 20 MG PO SCH (08:07)
[2018-08-28] MEDS: Cholecalciferol TAB* 1000 UNITS PO SCH (08:07)
[2018-08-28] MEDS: JUBLIA TOPICAL SCH (08:08)
[2018-08-28] MEDS ORDERED: LINAGLIPTIN 5 MG PO SCH (09:00)
[2018-08-28] MEDS ORDERED: Torsemide TAB* 20 MG PO SCH (09:00)
[2018-08-28] MEDS ORDERED: CMC: Anastrozole (NF) 1 MG TAB PO SCH (09:00)
[2018-08-28] MEDS ORDERED: Lisinopril TAB* 10 MG PO SCH (09:00)
--- NOTE | 2018-08-28 09:19 | PN ---
Progress Note - Progress Note Date of Service: 08/28/18 Note: Surgery Ms. Mortensen says she is "taking pain medicine whenever they offer it", but otherwise feels fine. She had an episode of elevated blood sugar last night and the hospitalists have been consulted to see and help manage her glucose. Vital Signs 08/27/18 08/27/18 08/27/18 10:01 10:02 10:05 Temperature 97.5 F Pulse Rate 90 89 90 Respiratory 16 18 Rate Blood Pressure 134/64 137/67 (mmHg) O2 Sat by Pulse 99 99 99 Oximetry 08/27/18 08/27/18 08/27/18 10:10 10:15 10:30 Temperature Pulse Rate 85 83 84 Respiratory 19 16 27 Rate Blood Pressure 126/58 121/58 124/61 (mmHg) O2 Sat by Pulse 98 98 96 Oximetry 08/27/18 08/27/18 08/27/18 10:44 10:46 10:53 Temperature Pulse Rate 82 Respiratory 18 15 16 Rate Blood Pressure 122/56 (mmHg) O2 Sat by Pulse 95 Oximetry 08/27/18 08/27/18 08/27/18 11:00 11:12 11:15 Temperature Pulse Rate 82 83 Respiratory 19 18 17 Rate Blood Pressure 116/59 116/52 (mmHg) O2 Sat by Pulse 97 96 Oximetry 08/27/18 08/27/18 08/27/18 11:31 11:57 12:07 Temperature 98.1 F Pulse Rate 82 101 Respiratory 20 18 16 Rate Blood Pressure 105/51 137/58 (mmHg) O2 Sat by Pulse 97 95 Oximetry 08/27/18 08/27/18 08/27/18 12:10 12:59 13:01 Temperature 98.1 F 97.7 F Pulse Rate 101 98 Respiratory 18 18 16 Rate Blood Pressure 137/58 124/59 (mmHg) O2 Sat by Pulse 95 95 Oximetry 08/27/18 08/27/18 08/27/18 14:12 15:14 16:02 Temperature 97.8 F 98.7 F Pulse Rate 88 84 Respiratory 18 16 18 Rate Blood Pressure 129/48 103/49 (mmHg) O2 Sat by Pulse 97 94 Oximetry 08/27/18 08/27/18 08/27/18 18:02 19:11 20:00 Temperature 99.0 F Pulse Rate 86 Respiratory 18 20 18 Rate Blood Pressure 135/56 (mmHg) O2 Sat by Pulse 97 Oximetry 08/27/18 08/28/18 08/28/18 21:11 00:47 02:56 Temperature 97.8 F Pulse Rate 76 Respiratory 18 18 18 Rate Blood Pressure 117/54 (mmHg) O2 Sat by Pulse 96 Oximetry 08/28/18 08/28/18 08/28/18 04:33 04:56 07:25 Temperature 98.1 F 97.5 F Pulse Rate 77 73 Respiratory 20 18 18 Rate Blood Pressure 116/53 114/52 (mmHg) O2 Sat by Pulse 99 100 Oximetry 08/28/18 08:00 Temperature Pulse Rate Respiratory 18 Rate Blood Pressure (mmHg) O2 Sat by Pulse 100 Oximetry Mastectomy site: clean and dry, flaps viable. EMILY: serosanguinous fluid. Intake & Output 08/27/18 08/28/18 08/28/18 22:59 06:59 14:59 Intake Total 2040 200 480 Output Total 1240 500 0 Balance 800 -300 480 Laboratory Results - last 24 hr 08/27/18 08/27/18 08/27/18 10:52 22:52 23:18 Glucose 523 H* POC Glucose (mg/dL) 183 H > 444 H* A/P: POD#1 s/p left mastectomy for breast cancer; doing well. Await medicine input, expect she will be in the hospital for the weekend.
[2018-08-28] MEDS ORDERED: Dextrose 50% Syringe 50 ML* 25 GM/50 ML SYRINGE IV PUSH PRN (10:22)
[2018-08-28 10:23] LABS: EGFR Non-African American 30.3 (>60)
[2018-08-28] MEDS: Insulin LISPRO* 1 UNITS UNIT SUBCUT SCH ×3 (12:26→21:30)
--- NOTE | 2018-08-28 16:00 | CONSULT ---
Subjective Date of Service: 08/28/18 Interval History: This is an 87 year old female patient with history diabetes mellitus and recent diagnosis of breast cancer that presented to Dr. Morales for mastectomy and node resection and has had persistent hyperglycemia post-operatively. We are requested for consultation for medical co-managment of her diabetes. Review of Systems - Measurements Intake and Output: Intake and Output Last 24 Hours 08/26/18 08/27/18 08/28/18 08/29/18 06:59 06:59 06:59 06:59 Intake Total 3540 1910 Output Total 1740 930 Balance 1800 980 Weight 196 lb Intake: IV Fluids 1300 LR 1300 Oral 2240 1910 Output: EMILY #1 190 80 Urine 1550 850 Other: # Bowel Movements 0 - Review of Systems Constitutional Symptoms: Negative: Weight Gain, Weight Loss, Weakness, Fatigue, Fever, Night Sweats, Unexplained Falls, Other Dermatology: Negative: Normal, Rash, Skin Lesions, Cancer, Skin Lumps, Other HEENT: Negative: Normal, Change in Hearing, Vertigo, Dental Problems, Tinnitus, Sinus Problem, Other Eyes: Negative: Normal, Change in Vision, Double Vision, Eye Pain, Glaucoma, Cataract, Contacts or Glasses, Other Pulmonary: Negative: Normal, Cough, Sputum, Hemoptysis, Wheezing, Respiratory Distress, Shortness of Breath, COPD, Asthma, Exercise Intolerance, Home Oxygen, Other Cardiology: Negative: Normal, Chest Pain, Shortness of Breath, Palpitations, Swelling of Ankles, Peripheral Vascular Dis, Edema, Faintness, Syncope, Claudication, Proximal NocturnalDyspnea, Orthopnoea, Other Gastroenterology: Negative: Normal, Abdominal Pain, Nausea, Vomiting, Anorexia, Indigestion, Difficulty Swallowing, Heartburn, Constipation, Diarrhea, Blood in Stools, Change in Bowel Habits, Haematemesis, Melena, Other Genital - Urinary: Negative: Normal, Dysuria, Hematuria, Polyuria, Nocturia, Other Genitourinay - Female: Negative: Menses Normal, Vaginal Discharge, Menopause, Dysmenorrhea, Other Musculoskeletal: Positive: Joint Pain, Joint Stiffness, Arthritis Negative: Osteoporosis, Low Back Pain, Sciatica, Joint Deformities, Kyphoscoliosis, Other Endocrinology: Positive: Diabetes Mellitus, Hyperglycemia Negative: Normal, Thyroid Problems, Adrenal Problems, Gonadal Problems, Family Hx Endocrine Disorders, Obesity, Hx Hypoglycemia, Diabetic Foot Ulcers, Calluses, Hirsutism, Menstral Abnormalities, Polydipsia, Polyuria, Gonadal Problems, Gynecomastia, Pituitary disease, Other Hematologic/Lymphatic: Negative: Anemia, Easy Brusing, Hx Leukemia, Hx Lymphoma, Use of Anticoagulant, Use of Antiplatelet Drugs, Other Neurology: Negative: Normal, Headache, Migraines, Change in Vision, Diplopia, Dizziness , Change in Balancing, Change in Coordination, Change in Memory, Change in Speech, Change in Sphincter Function, Change in Walking, Numbness\Paresthesiae, Unexplained Weakness, Hx of Stroke\TIA, Hx of Seizures, Other Psychiatry: Negative: Normal, Depression, Anxiety, Depressed Mood, Adhedonia, Sexual Dysfunction, Weight Change, Guilt Feelings, Tearfulness, Unusual Fatigue, Unusual Anxiety, Suicidal Ideation, Hypomania, Eating Disorders, Other Allergic/Immunologic: Negative: Hx Anaphylaxis, Hx Angioedema, Hx Environmental, Hx Seasonal, Athsma, Hx HIV, Immunocompromise, Swollen Glands LymphNodes, Other Objective Active Medications: Acetaminophen (Tylenol Tab*) 650 mg PO Q4H PRN PRN Reason: Pain Or Temperature >101 F Last Admin: 08/28/18 12:58 Dose: 650 mg Anastrozole (Arimidex (Nf)) 1 mg PO QAM [facility] Last Admin: 08/28/18 08:06 Dose: 1 mg Atorvastatin Calcium (Lipitor*) 20 mg PO QPM [facility] Last Admin: 08/27/18 17:31 Dose: 20 mg Cholecalciferol (Vitamin D Tab*) 4,000 units PO DAILY [facility] Last Admin: 08/28/18 08:07 Dose: 4,000 units Dextrose (D50w Syringe 50 Ml*) 12.5 gm IV PUSH .FOR FS < 60 - SS PRN PRN Reason: FS < 60 Diphenhydramine HCl (Benadryl Po*) 25 mg PO BID PRN PRN Reason: ITCHING AND HIVES Glimepiride (Glimepiride (Nf)) 2 mg PO BID WITH MEALS [facility]; Protocol Last Admin: 08/28/18 08:07 Dose: 2 mg Lactated Ringer's (Lactated Ringers 1000 Ml Bag*) 1,000 mls @ 75 mls/hr IV PER RATE [facility] Last Admin: 08/28/18 02:57 Dose: 75 mls/hr Insulin Human Lispro (Humalog*) 0 units SUBCUT ACHS [facility]; Protocol Last Admin: 08/28/18 12:26 Dose: 12 units Linagliptin (Tradjenta (Nf)) 5 mg PO QAM [facility] Last Admin: 08/28/18 08:06 Dose: 5 mg Lisinopril (Prinivil Tab*) 10 mg PO QPM [facility] Last Admin: 08/27/18 17:31 Dose: Not Given Pto: Jublia ( Efinaconazole) Topical 1 dose TOPICAL DAILY [facility] Last Admin: 08/28/18 08:08 Dose: Not Given Ondansetron HCl (Zofran Inj*) 4 mg IV Q4H PRN PRN Reason: NAUSEA/VOMITING Potassium Citrate (Urocit-K 10 (Nf)) 10 meq PO BID [facility] Last Admin: 08/28/18 08:06 Dose: 10 meq Torsemide (Demadex*) 10 mg PO QAM [facility] Last Admin: 08/28/18 08:07 Dose: 10 mg Tramadol HCl (Ultram*) 50 mg PO Q6HR PRN PRN Reason: PAIN Last Admin: 08/28/18 09:33 Dose: 50 mg Vital Signs - 8 hr 08/28/18 08/28/18 08/28/18 08:00 09:33 11:40 Temperature 97.6 F Pulse Rate 70 Respiratory 18 18 18 Rate Blood Pressure 121/56 (mmHg) O2 Sat by Pulse 100 100 Oximetry 08/28/18 12:27 Temperature Pulse Rate Respiratory 18 Rate Blood Pressure (mmHg) O2 Sat by Pulse Oximetry Oxygen Devices in Use Now: None Appearance: Alert, well appearing, NAD Eyes: No Scleral Icterus, PERRLA Ears/Nose/Mouth/Throat: NL Teeth, Lips, Gums, Mucous Membranes Moist Neck: NL Appearance and Movements; NL JVP, Trachea Midline Respiratory: Symmetrical Chest Expansion and Respiratory Effort, Clear to Auscultation Cardiovascular: NL Sounds; No Murmurs; No JVD, RRR, No Edema Abdominal: NL Sounds; No Tenderness; No Distention Extremities: No Edema, No Clubbing, Cyanosis Skin: No Rash or Ulcers Neurological: Alert and Oriented x 3, NL Sensation Nutrition: Taking PO's Result Diagrams: 08/28/18 09:50 Assessment/Plan - Billing Assessment: This is an 87 year old female s/p left breast mastectomy with persistent post- operative hyperglycemia. Recommendations: 1. DMII - Continue glimeperide and tradjenta, added lispro SS with BG AC/HS - Limit carbs to 2 servings per meal - Counseled on diet - If patient had intraoperative steroids, would also be contributing to high sugars today 2. Left Mastectomy, Breast CA - POC as per surgery - Continue anastrozole - Pain control, bowel regimen 3. HTN/HLD - Stable, continue home medications 4. OA - Supportive care 5. History of LLE DVT - Restart warfarin when clear by surgery 6. History of Recurrent ESBL UTIs - No current infection VTE PPX: - Restart warfarin when clear by surgery Diet: - Consistent carb Code Status: - Full Code Admission Status and Rationale: - Inpatient, dispo per surgery Thank you for the courtesy of this consultation, will follow with you.
[2018-08-28] MEDS: Atorvastatin* 20 MG TAB PO SCH (17:35)
[2018-08-28] MEDS: Lisinopril TAB* 10 MG PO SCH (17:35)
[2018-08-29] MEDS: traMADol TAB* 50 MG PO PRN ×3 (03:56→17:46)
[2018-08-29] MEDS: Acetaminophen TAB* 325 MG PO PRN ×3 (07:05→20:21)
[2018-08-29] MEDS: Insulin LISPRO* 1 UNITS UNIT SUBCUT SCH ×4 (08:04→21:42)
[2018-08-29] MEDS: PTO:Linagliptin (NF) 5 MG TAB PO SCH (08:11)
[2018-08-29] MEDS: CMCS:Glimepiride (NF) 2 MG TAB PO SCH ×2 (08:11→17:46)
[2018-08-29] MEDS: JUBLIA TOPICAL SCH (08:12)
[2018-08-29] MEDS: Torsemide TAB* 20 MG PO SCH (09:27)
[2018-08-29] MEDS: Cholecalciferol TAB* 1000 UNITS PO SCH (09:27)
[2018-08-29] MEDS: PTO:Potassium Citrate (NF) 10 MEQ TAB PO SCH ×2 (09:27→20:21)
[2018-08-29] MEDS: CMCS:Anastrozole (NF) 1 MG TAB PO SCH (09:27)
--- NOTE | 2018-08-29 11:41 | PN ---
Progress Note - Progress Note Date of Service: 08/29/18 Note: S/P mastectomy Afeb, VS noted Voiding well Mumtaz po's, No N/V EMILY 40 ml serosang Incis clean Doing well, Glucose better Cont EMILY drainage Await path Prob disch 08/30
[2018-08-29] MEDS: Lisinopril TAB* 10 MG PO SCH (17:47)
[2018-08-29] MEDS: Atorvastatin* 20 MG TAB PO SCH (17:47)
[2018-08-30] MEDS: traMADol TAB* 50 MG PO PRN ×3 (04:15→17:36)
[2018-08-30] MEDS: Torsemide TAB* 20 MG PO SCH (07:43)
[2018-08-30] MEDS: PTO:Potassium Citrate (NF) 10 MEQ TAB PO SCH ×2 (07:43→21:33)
[2018-08-30] MEDS: CMCS:Anastrozole (NF) 1 MG TAB PO SCH (07:43)
[2018-08-30] MEDS: CMCS:Glimepiride (NF) 2 MG TAB PO SCH ×2 (07:44→17:36)
[2018-08-30] MEDS: PTO:Linagliptin (NF) 5 MG TAB PO SCH (07:44)
[2018-08-30] MEDS: Cholecalciferol TAB* 1000 UNITS PO SCH (07:44)
[2018-08-30] MEDS: Acetaminophen TAB* 325 MG PO PRN (07:44)
[2018-08-30] MEDS: JUBLIA TOPICAL SCH (07:45)
[2018-08-30] MEDS: Insulin LISPRO* 1 UNITS UNIT SUBCUT SCH ×4 (07:45→21:31)
--- NOTE | 2018-08-30 10:30 | PN ---
Progress Note - Progress Note Date of Service: 08/30/18 SOAP: Subjective:POD#3 s/p left mastectomy moderate pain,eating ok [] Objective:afeb,VSS;lungs:clear bilat;heart:RRR;L mastectomy incision intact with steristrips,no erythema;EMILY serosang,just emptied 30ml;milked;dressing and 6 "jannette replaced;ext:nontender;participating in PT/OT [] Assessment:pt thought she would be going to skilled nsg facility on discharge; pt daughter concerned about EMILY drain care pt has hx of DVT LE and was on preop Warfarin [] Plan:I will talk with information systems planner but I met with pt daughter Blanca and explained that drain mgmt is short term will resume Warfarin today and cover with SQ Heparin starting today []
[2018-08-30] MEDS: Heparin VIAL(*) 5000 UNITS/ML VIAL (FIVE THOUSAND) SUBCUT SCH ×2 (14:46→21:32)
[2018-08-30] MEDS ORDERED: Warfarin TAB(*) 5 MG PO SCH (17:00)
[2018-08-30] MEDS: Atorvastatin* 20 MG TAB PO SCH (17:36)
[2018-08-30] MEDS: Lisinopril TAB* 10 MG PO SCH (17:36)
[2018-08-31] MEDS: Heparin VIAL(*) 5000 UNITS/ML VIAL (FIVE THOUSAND) SUBCUT SCH ×2 (06:02→13:00)
[2018-08-31] MEDS: JUBLIA TOPICAL SCH (07:19)
[2018-08-31] MEDS: Insulin LISPRO* 1 UNITS UNIT SUBCUT SCH ×2 (07:29→12:39)
[2018-08-31] MEDS: Torsemide TAB* 20 MG PO SCH (07:47)
[2018-08-31] MEDS: traMADol TAB* 50 MG PO PRN (07:48)
[2018-08-31] MEDS: Cholecalciferol TAB* 1000 UNITS PO SCH (07:48)
[2018-08-31] MEDS: CMCS:Anastrozole (NF) 1 MG TAB PO SCH (07:49)
[2018-08-31] MEDS: PTO:Potassium Citrate (NF) 10 MEQ TAB PO SCH (07:49)
[2018-08-31] MEDS: CMCS:Glimepiride (NF) 2 MG TAB PO SCH (07:49)
[2018-08-31] MEDS: PTO:Linagliptin (NF) 5 MG TAB PO SCH (07:49)
[2018-08-31 12:07] VITALS: BP 145/50
--- NOTE | 2018-08-31 13:56 | PN ---
Progress Note - Progress Note Date of Service: 08/31/18 Note: S: POD #4. Seen and examined. Pain well controlled w/ Tramadol. Denies SOB. Warfarin just restarted yesterday. O: Vital Signs - 8 hr 08/31/18 08/31/18 08/31/18 07:27 07:48 08:00 Temperature 97.8 F Pulse Rate 75 Respiratory 18 18 18 Rate Blood Pressure 124/54 (mmHg) O2 Sat by Pulse 99 99 Oximetry 08/31/18 08/31/18 09:59 11:49 Temperature 98.1 F Pulse Rate 84 Respiratory 18 16 Rate Blood Pressure 145/50 (mmHg) O2 Sat by Pulse 98 Oximetry Intake and Output Last 24 Hours 08/29/18 08/30/18 08/31/18 09/01/18 06:59 06:59 06:59 06:59 Intake Total 3190 1605 1650 120 Output Total 4232 3380 2050 900 [facility] -1042 -1775 -400 -780 Intake: IV Fluids 970 495 LR 970 495 Oral 2220 1110 1650 120 Output: EMILY #1 182 130 125 Urine 4050 3250 1925 900 Other: # Bowel Movements 1 1 Estimated Stool Amount Small Large PE: appears comfortable Left chest wall incision ok; edges intact; no drainage; small areas of ecchymosis. EMILY drain w/ moderate clear light serosang drainage A/P: s/p Left mastectomy, doing well; ok for d/c to [facility]. See d/c summary.
--- NOTE | 2018-08-31 14:42 | DS ---
AMENDED REPORT NOW INCLUDES DESIGNATED COSIGNER CC: Dr. Navin Landeros; Dr. Jigna Sanders; Dr. Lody Beckett; [facility] * DATE OF ADMISSION: 08/27/2018. DATE OF DISCHARGE: 08/31/2018. ATTENDING PHYSICIAN: Dr. Lucretia Morales * (MO Sapp dictating). HOSPITAL COURSE: Please refer to admission history and physical and operative note for details. The patient was taken to the operating room on 08/27/2018 and underwent left mastectomy with Dr. Morales for breast cancer. Final pathology is still pending. The patient has had an otherwise uneventful postoperative course with gradual improvement in pain. As of the morning of discharge, she is tolerating diet well. She denies significant pain or shortness of breath. She has been on Lispro coverage for finger sticks, which in the last 24 hours have run between 91 and 190, therefore requiring very little coverage. She is managing pain well with Tramadol which is part of her usual regimen. Her Warfarin was restarted per her usual dosing on 08/30/2018. PHYSICAL EXAMINATION ON THE DAY OF DISCHARGE: General: She appears comfortable and in no acute distress. Vital Signs: Temperature 98.1, blood pressure 145/50, pulse 84, respirations 16, room air saturation 98 percent. Heart: Regular rate and rhythm. Lungs: Clear to auscultation. No rales or wheezes. Left chest wall incision appears to be healing well with no open or draining areas. There is no drainage on the dressing. There are some small limited areas of ecchymosis. Harrison-Palomo drain had put out 125 ml in the last 24 hours, currently there is a moderate amount of clear light serosanguineous drainage. IMPRESSION: Status post left mastectomy, doing well. PLAN: [facility]. She does have limitations secondary to her arthritis. She also has two superficial buttock ulcers, one on each side to which was applied DuoDERM dressings today by the wound care nurse. The wound care nurse measured right gluteus superficial ulcer measuring 6 x 2 x 0.1 cm and ulcer on the left gluteus measuring 3 x 1.5 x 0.1 cm. Both were described as partial thickness with a pink wound base and a small amount of serous drainage. DuoDERM was applied to each open area which can be changed every three days and on a prn basis if loose or soiled. The patient should have an INR drawn on 09/06/2018 and those results forwarded to Dr. Sanders's office for management. She should also be seen by our office sometime between 09/06 and 09/08/2018 for possible drain removal and wound check, either in our office or possibly by [facility] at [facility] if [facility]. She will resume her usual medications which are listed on her medication reconciliation form. There are no other changes. MO SAPP [id number]/[facility] #: [id number] ENRIQUE
== END 2018-08-31 15:35 | DRG 583 ==
LOC: INTOOBSV 06:01 → AA 06:01 → SSU 11:45 → OBSVTOIN 08-28 11:04
PROVIDERS: ADMIT Surgery; ATTEND Surgery
PROC: 0HTU0ZZ Resection of Left Breast, Open Approach (ICD-10-PCS; principal; 2018-08-27 07:30)
DX: C50.912 Malignant neoplasm of unspecified site of left female breast (principal); E11.65 Type 2 diabetes mellitus with hyperglycemia; I10 Essential (primary) hypertension; E78.5 Hyperlipidemia, unspecified; M16.11 Unilateral primary osteoarthritis, right hip; E66.9 Obesity, unspecified; Z86.718 Personal history of other venous thrombosis and embolism; Z79.01 Long term (current) use of anticoagulants; Z79.899 Other long term (current) drug therapy; Z88.5 Allergy status to narcotic agent; Z88.2 Allergy status to sulfonamides; Z88.8 Allergy status to other drugs, medicaments and biological substances; Z91.041 Radiographic dye allergy status; Z80.3 Family history of malignant neoplasm of breast; Z80.41 Family history of malignant neoplasm of ovary; Z68.38 Body mass index [BMI] 38.0-38.9, adult; Z79.84 Long term (current) use of oral hypoglycemic drugs
CPT/HCPCS: 36415; 80048; 82947; 88307; A9270-GY; G8978-GP-CI; G8979-GP-CI; G8987-GO-CK; G8988-GO-CI; J0690; J1100; J1644; J1885; J2250; J2270; J2405; J2704; J3010

== ENCOUNTER 2019-09-05 11:47 | Emergency (ER) | payer MEDICARE ==
--- NOTE | 2019-09-05 14:38 | ED ---
GI/ HPI - HPI Summary HPI Summary: Pt is an 88 y/o F presenting to the ED with a chief complaint of urinary sx initially onset about 1 week ago per pt. Pts family states they saw her on and she did not say anything. She reports UTI sx including difficulty urinating, dysuria, slight suprapubic abd pain, and fatigue. She denies fever, CP, or SOB. Hx of CHF, HTN, DM. - History of Current Complaint Chief Complaint: EDUrogenitalProblems Time Seen by Provider: 09/05/19 14:09 Stated Complaint: POSSIBLE UTI Hx Obtained From: Patient Onset/Duration: Started Days Ago, Still Present Timing: Constant, Lasting Days Severity: Moderate Current Severity: Moderate Pain Intensity: 7 Location of Pain: Suprapubic Associated Signs and Symptoms: Positive: Dysuria, UTI Symptoms. Negative: Fever , Chest Pain Aggravating Factor(s): Nothing Alleviating Factor(s): Nothing - Additional Pertinent History Primary Care Physician: [id number] - Allergy/Home Medications Allergies/Adverse Reactions: Allergies Allergy/AdvReac Type Severity Reaction Status Date / Time Iodinated Contrast Media Allergy Severe Anaphylatic Verified 09/05/19 11:54 [Iodinated Contrast- Oral Shock and IV Dye] iodine Allergy Severe Hives/Diff. Verified 09/05/19 11:54 Breathing/I tching nitrofurantoin Allergy Severe Rash And Verified 09/05/19 11:54 [From Macrobid] Itching adhesive Allergy Intermediate Rash And Verified 09/05/19 11:54 Itching amoxicillin [From Augmentin] Allergy Intermediate Rash And Verified 09/05/19 11: 54 Itching clavulanic acid Allergy Intermediate Rash And Verified 09/05/19 11:54 [From Augmentin] Itching oxycodone Allergy Intermediate confusion Verified 09/05/19 11:54 with inability to articulate self, followed by [facility] sulfamethoxazole Allergy Intermediate Rash And Verified 09/05/19 11:54 [From Bactrim] Itching trimethoprim [From Bactrim] Allergy Intermediate Rash And Verified 09/05/19 11: 54 Itching Home Medications: Home Medications Cholecalciferol TAB* [Vitamin D TAB*] 4,000 units PO DAILY 09/05/19 [History Confirmed 09/05/19] Exenatide Microspheres [Bydureon] 2 mg SUBCUT WEEKLY 09/05/19 [History Confirmed 09/05/19] Gabapentin CAP(*) [Neurontin 100 mg CAP(*)] 100 mg PO TID PRN 09/05/19 [History Confirmed 09/05/19] Liraglutide (NF) [Victoza (NF)] 1.2 mg SUBCUT DAILY 09/05/19 [History Confirmed 09/05/19] Lisinopril TAB* [Prinivil TAB 10 MG*] 5 mg PO DAILY 09/05/19 [History Confirmed 09/05/19] Torsemide TAB* [Demadex*] 10 mg PO DAILY 09/05/19 [History Confirmed 09/05/19] diPHENhydraMINE PO* [Benadryl PO 25 MG TAB*] 25 mg PO Q4H PRN 09/05/19 [History Confirmed 09/05/19] PMH/Surg Hx/FS Hx/Imm Hx Previously Healthy: Yes Endocrine/Hematology History: Reports: Hx Diabetes, Hx Anemia Denies: Hx Bone Marrow Disease, Hx Thyroid Disease Cardiovascular History: Reports: Hx Hypercholesterolemia, Hx Hypertension, Other Cardiovascular Problems/Disorders Denies: Hx Peripheral Vascular Disease Respiratory History: Reports: Hx Pneumonia Denies: Hx Asthma, Hx Chronic Obstructive Pulmonary Disease (COPD), Other Respiratory Problems/Disorders GI History: Denies: Hx Ulcer, Other GI Disorders History: Reports: Hx Kidney Infection - more than 5 years ago, Hx Kidney Stones - LEFT STENT Denies: Hx Renal Disease, Other Problems/Disorders - UTI 05/05 hospitalized, previous UTIs 06/05, 07/28/18 Musculoskeletal History: Reports: Hx Arthritis Denies: Hx Osteoporosis Sensory History: Denies: Hx Cataracts, Hx Contacts or Glasses, Hx Glaucoma, Hx Hearing Aid Opthamlomology History: Denies: Hx Cataracts, Hx Contacts or Glasses, Hx Glaucoma Neurological History: Denies: Hx Headaches, Hx Seizures, Hx Transient Ischemic Attacks (TIA), Other Neuro Impairments/Disorders Psychiatric History: Denies: Hx Anxiety, Hx Depression, Other Psychiatric Issues/Disorders - Cancer History Cancer Type, Location and Year: BREAST CA Hx Chemotherapy: No Hx Radiation Therapy: No - Surgical History Surgery Procedure, Year, and Place: hysterectomy BSO, cholecystectomy, appendectomy, carpal tunnel release Hx Anesthesia Reactions: No Infectious Disease History: No Infectious Disease History: Denies: Hx Hepatitis, Hx Human Immunodeficiency Virus (HIV), History Other Infectious Disease, Traveled Outside the [place] in Last 30 Days - Family History Known Family History: Positive: Other - Positive: breast and ovarian cancer Negative: Blood Disorder - Social History Alcohol Use: None Hx Substance Use: No Substance Use Type: Reports: None Hx Tobacco Use: No Smoking Status (MU): Never Smoked Tobacco Type: Cigarettes Have You Smoked in the Last Year: No Review of Systems Positive: Fatigue. Negative: Fever Negative: Chest Pain Negative: Shortness Of Breath Positive: Abdominal Pain Positive: dysuria, other - difficulty pushing the urine out All Other Systems Reviewed And Are Negative: Yes Physical Exam - Summary Physical Exam Summary: Constitutional: Well-developed, Well-nourished, Alert. (-) Distressed Skin: Warm, Dry HENT: Normocephalic; Atraumatic Eyes: Conjunctiva normal Neck: Musculoskeletal ROM normal neck. (-) JVD, (-) Stridor, (-) Nuchal rigidity Cardio: Rhythm regular, rate normal, Heart sounds normal; Intact distal pulses; Radial pulses are 2+ and symmetric. (-) Murmur Pulmonary/Chest wall: Effort normal. (-) Respiratory distress, (-) Wheezes, (-) Rales Abd: Soft, (-) tenderness, (-) Distension, (-) Guarding, (-) Rebound Musculoskeletal: 1+ edema to bilateral LE Lymph: (-) Cervical adenopathy Neuro: Alert, Oriented x3 Psych: Mood and affect Normal Triage Information Reviewed: Yes Vital Signs On Initial Exam: Initial Vitals Temp Pulse Resp BP Pulse Ox 99.3 F 113 20 159/88 97 09/05/19 11:50 09/05/19 11:50 09/05/19 11:50 09/05/19 11:50 09/05/19 11:50 Vital Signs Reviewed: Yes Procedures - Procedure Summary Procedure Summary: US IV Ultrasound Guided Peripheral IV Procedure Note Indication: Unable to obtain adequate IV access Skin Prep:Chlorhexidine Sterile Prep (allowed to dry for thirty seconds) Sterility: Gloves Insertion: Appropriate time out was taken. Ultrasound guidance was utilized for vein selection, to document selected vessel patency and real time ultrasound visualization of vascular needle entry into venous lumen. Insertion Site: R AC Type of catheter: 20 gauge catheter Blood return:yes Saline lock: yes Post Procedure: Estimated blood loss: minimal - Sedation Patient Received Moderate/Deep Sedation with Procedure: No Diagnostics - Vital Signs Vital Signs Temp Pulse Resp BP Pulse Ox 09/05/19 13:21 98 F 97 20 154/71 100 09/05/19 11:50 99.3 F 113 20 159/88 97 - Laboratory Result Diagrams: 09/05/19 15:07 09/05/19 21:00 Lab Statement: Any lab studies that have been ordered have been reviewed, and results considered in the medical decision making process. - Radiology CXR Radiology Interpretation Completed By: Radiologist Summary of Radiographic Findings: No active cardiopulmonary disease is noted. ED physician has reviewed this report. - EKG 1636 Cardiac Rate: Tachycardia - 104bpm EKG Rhythm: Sinus Tachycardia ST Segment: Normal Ectopy: None Summary of EKG Findings: An EKG at 1636 reveals sinus tachycardia at 104bpm with T-wave inversions in leads II, III, and aVF. No significant change from . No STEMI. No acute changes. ED physician has reviewed and interpreted this EKG. Re-Evaluation - Re-Evaluation First Eval Change: Improved Comment: Patient drinking water. Labs w UA 3+ LE, WBC 12. Elevated GAP to 15. Suspect 2/2 UTI. HR 90's. D/w patient giving sm amount IVF, she would like to try and drink water. Will recheck BMP after hydration. 2nd re-eval Re-Evaluation Time: 18:15 Comment: Will give IVF for dehydration and repeat BMP 3rd re-eval Re-Evaluation Time: 21:27 Change: Improved Comment: Pt states she feels much better. Ambulated to bathroom. Labs notable for GAP dec to 13. GIGU Course/Dx - Course Course Of Treatment: 88 y/o F w hx CHF p/w urinary frequency, fatigue. - PE well appearing elderly female, mild suprapubic tenderness. - check labs including CBC, UA. CXR given reported episode of SOB (denies current), EKG unchanged, troponin negative. - UA with 3+ LE given keflex, AG 15, plan for PO hydration as patient does not want IVF, will repeat BMP. - Diagnoses Provider Diagnoses: UTI (urinary tract infection) Discharge ED - Sign-Out/Discharge Documenting (check all that apply): Patient Departure - Discharge Plan Condition: Stable Disposition: HOME Prescriptions: Cephalexin CAP* [Keflex CAP*] 500 mg PO BID 5 Days #10 cap Patient Education Materials: Urinary Tract Infection in Older Adults (ED) Referrals: Estefany Tolentino MD [Primary Care Provider] - Additional Instructions: You were seen in the emergency department for urinary frequency. Your labs showed a UTI. Please take Keflex twice a day for 5 days. If any studies were not completed at the time of discharge you will be called with the relevant results. Please follow up with your primary care doctor in next 2-3 days and return to emergency department for worsening or concerning symptoms. It was a pleasure taking care of you today. - Billing Disposition and Condition Condition: STABLE Disposition: Home - Attestation Statements Document Initiated by Rangelibhumaira: Yes Documenting Scribe: Nathalie Nye Provider For Whom Rosaura is Documenting (Include Credential): Kosta Hare MD. Scribe Attestation: INathalie, scribed for Kosta Hare MD. on 09/05/19 at 2129. Scribe Documentation Reviewed: Yes Provider Attestation: The documentation as recorded by the Nathalie stanton accurately reflects the service I personally performed and the decisions made by , Kosta Hare MD. Status of Scribe Document: Viewed
[2019-09-05 15:24] LABS: ABS Eosinophils 0.1 10^3/ul (0-0.6); ABS Lymphocytes 1.4 10^3/ul (1.0-4.8); ABS Neutrophils 10.2 10^3/ul (1.5-7.7); Eosinophil % 0.5 %; Hematocrit 34 % (35-47); Hemoglobin 11.3 g/dL (12.0-16.0); Lymphocyte % 11.2 %; Mean Corpuscular HGB Conc 33 g/dL (31-36); Mean Corpuscular Hemoglobin 29 pg (27-31); Mean Corpuscular Volume 88 fL (80-97); Mean Platelet Volume 8.3 fL (7.4-10.4); Nucleated Red Blood Cells % 0.1; Platelet Count 308 10^3/uL (150-450); Red Blood Count 3.85 10^6 /uL (3.70-4.87); Red Cell Distribution Width 14 % (10-15); White Blood Count 12.7 10^3/uL (3.5-10.8)
[2019-09-05 15:24] LABS: Urine Appearance Clear; Urine Color Yellow
[2019-09-05 15:25] LABS: Urine Bilirubin Negative (Negative); Urine Blood 1+ (Negative); Urine Glucose Negative (Negative); Urine Ketones 4+ (Negative); Urine Nitrite Negative (Negative); Urine Protein 1+(30 mg/dL) (Negative); Urine Urobilinogen Negative (Negative)
[2019-09-05] MEDS ORDERED: Cephalexin CAP* 500 MG PO ONE ×2 (15:33→21:28)
[2019-09-05 15:41] LABS: Urine Red Blood Cell 2+(6-10/hpf) (Absent); Urine Squamous Epithelial Cell Present (Absent); Urine White Blood Cell 2+(11-20/hpf) (Absent)
[2019-09-05 15:43] LABS: Troponin I 0.02 ng/mL (<0.04)
[2019-09-05 15:55] LABS: Albumin 3.5 g/dL (3.2-5.2); BUN/Creatinine Ratio 24.3 (8-20); Calcium 9.5 mg/dL (8.6-10.3); EGFR African American 61.3 (>60); EGFR Non-African American 50.7 (>60); Globulin 3.4 g/dL (2-4); Potassium 4.2 mmol/L (3.5-5.0); Total Bilirubin 1.8 mg/dL (0.2-1.0); Total Protein 6.9 g/dL (6.4-8.9)
[2019-09-05 17:32] LABS: BUN/Creatinine Ratio 23.3 (8-20); Calcium 9.6 mg/dL (8.6-10.3); EGFR African American 61.3 (>60); EGFR Non-African American 50.7 (>60); Potassium 3.5 mmol/L (3.5-5.0)
[2019-09-05] MEDS ORDERED: NS 0.9% 1000 ML** 1,000 ML IV ONE (18:14)
[2019-09-05 21:26] LABS: Calcium 8.9 mg/dL (8.6-10.3); EGFR African American 66.5 (>60); Potassium 3.7 mmol/L (3.5-5.0)
[2019-09-05 21:43] VITALS: BP 153/62
--- NOTE | 2019-09-07 05:44 | ED ---
Imaging and Labs Follow Up Follow Up Type: Labs/Cultures Labs/Culture Result: patient urine culture grew E coli 50-75,000. Patient Communication/Plan: patient placed on keflex will wait for final culture for sensitivity. Provider Diagnoses: UTI (urinary tract infection)
--- NOTE | 2019-09-08 05:48 | ED ---
Imaging and Labs Follow Up Follow Up Type: Labs/Cultures Labs/Culture Result: urine is not sensitive to keflex Patient Communication/Plan: with patient allergies will place on cipro 500mg bid x3 day instead. patient will need to be warned about interaction with warfarin. attempted to call patient at [phone] and no vm set up. Provider Diagnoses: UTI (urinary tract infection)
== END 2019-09-05 21:42 | disposition home or self-care (01) ==
LOC: ED 11:47
DX: N39.0 Urinary tract infection, site not specified (principal); R30.0 Dysuria; I10 Essential (primary) hypertension; I50.9 Heart failure, unspecified; E11.9 Type 2 diabetes mellitus without complications; Z79.899 Other long term (current) drug therapy; E78.00 Pure hypercholesterolemia, unspecified; Z85.3 Personal history of malignant neoplasm of breast; R53.83 Other fatigue
CPT/HCPCS: 36415; 71046; 80048; 80053; 81003; 81015; 83880; 84484; 85025; 87077; 87086; 87186; 93005; 96360; 99284; A9270-GY

== ENCOUNTER 2020-06-05 12:57 | Inpatient (IN) ==
[~2020-06-05 12:57] MED LIST changes: -Buffered Lidocaine 0.9% SYRIN* 5 ML/SYR SYRINGE INTRADERM ONE; +Buffered Lidocaine 1% SYRIN 1 ml INTRADERM ONE; +Dexamethasone IV 4 MG/ML VIAL 1 ml VIAL IV SLOW PU ONE; +Famotidine IV 10 MG/ML 2 ml VIAL (20 mg) IV ONE; -Famotidine IV* 10 MG/ML 2 ML (20 mg) IV ONE; +Lactated Ringers 1000 ml BAG 1,000 ML IV SCH
[2020-06-05] MEDS ORDERED: Famotidine IV 10 MG/ML 2 ml VIAL (20 mg) ONE (13:24)
[2020-06-05] MEDS ORDERED: Clindamycin 900 MG/D5W BAG 900 MG/50 ML BAG IVPB ONE (13:24)
[2020-06-05] MEDS ORDERED: Buffered Lidocaine 1% SYRIN 1 ml INTRADERM ONE (13:24)
[2020-06-05] MEDS ORDERED: Dexamethasone IV 4 MG/ML VIAL 1 ml VIAL ONE (13:24)
[2020-06-05] MEDS ORDERED: Propofol 10 MG/ML 20 ML BTL ONE (13:27)
[2020-06-05] MEDS ORDERED: fentaNYL 100 mcg/2 ml 50 MCG/ML VIAL ONE ×2 (13:27→20:07)
[2020-06-05] MEDS ORDERED: Midazolam 2 mg/2 ml VIAL 1 mg/ml 2 ml VIAL (2 mg) ONE (13:27)
[2020-06-05 14:11] LABS: INR 1.05 (0.82-1.09)
[2020-06-05] MEDS ORDERED: Lidocaine 1% MPF 5 ML VIAL ONE (14:49)
[2020-06-05] MEDS ORDERED: ROPIVACAINE 5 MG/ML 30 ML BTL (0.5%) ONE ×2 (14:49→14:58)
[2020-06-05] MEDS ORDERED: Etomidate 20 mg/10 ml 2 MG/ML 10 ml VIAL ONE (15:18)
[2020-06-05] MEDS ORDERED: Lidocaine 2% PF 5 ML VIAL ONE (15:21)
[2020-06-05] MEDS ORDERED: Rocuronium 50 mg VIAL 10 mg/ml 5 ml VIAL (50 mg) ONE (15:23)
[2020-06-05] MEDS ORDERED: Ondansetron 4 mg VIAL 2 MG/ML 2 ml VIAL ONE (16:44)
[2020-06-05] MEDS ORDERED: fentaNYL 100 mcg/2 ml 50 MCG/ML VIAL IV PRN (17:33)
[2020-06-05] MEDS ORDERED: Naloxone 0.4 mg VIAL 0.4 mg/ml 1 ml VIAL IV PRN (17:33)
[2020-06-05] MEDS ORDERED: DiMENhydriNATE IV 50 mg/ml 1 ml VIAL IV PUSH PRN (17:33)
[2020-06-05] MEDS ORDERED: Neostigmine Methylsulfate 3 MG/3 ML SYRINGE ONE (17:44)
[2020-06-05] MEDS ORDERED: Glycopyrrolate IV 0.2 MG/ML 1 ML VIAL ONE (17:44)
[2020-06-05] MEDS ORDERED: Lactulose 30 ml UDC PO PRN (18:52)
[2020-06-05] MEDS ORDERED: Magnesium Hydroxide LIQ 30 ML UDC PO PRN (18:52)
[2020-06-05] MEDS ORDERED: diPHENhydraMINE IV 50 MG/ML 1 ml VIAL (BENADRYL) IV PRN (18:52)
[2020-06-05] MEDS ORDERED: diPHENhydraMINE 25 mg TAB PO PRN (18:52)
[2020-06-05] MEDS ORDERED: oxyCODONE/Acetamin 5/325 mg TAB PO PRN ×2 (18:52)
[2020-06-05] MEDS ORDERED: Ondansetron ODT 4 mg TAB 4 MG TAB PO PRN (18:52)
[2020-06-05] MEDS ORDERED: Silver Sulfadiazine 1% 20 gm TUBE TOPICAL PRN (19:01)
[2020-06-05] MEDS ORDERED: Dextrose 50% Syringe 50 ml 25 GM/50 ML SYRINGE IV PUSH PRN (19:03)
[2020-06-05] MEDS ORDERED: Enoxaparin 60 MG/0.6 ML SYR SUBCUT SCH (20:00)
[2020-06-05] MEDS: Magnesium Hydroxide LIQ 30 ML UDC PO SCH (21:52)
[2020-06-05] MEDS: Lactated Ringers 1000 ml BAG 1,000 ML IV SCH (21:53)
[2020-06-05] MEDS: POTASSIUM CITRATE 10 MEQ PO SCH (21:55)
[2020-06-06] MEDS ORDERED: Polyethylene Glycol 3350 17 GM PACKET PO PRN (00:01)
[2020-06-06] MEDS: Clindamycin 600 MG/D5W BAG 600 MG/50 ML BAG IV SCH ×3 (00:34→16:27)
[2020-06-06] MEDS: Ondansetron 4 mg VIAL 2 MG/ML 2 ml VIAL IV PRN (03:57)
[2020-06-06] MEDS: Morphine 2 MG/ML SYRINGE IV PRN (03:57)
[2020-06-06] MEDS: Enoxaparin 80 MG/0.8 ML SYR SUBCUT SCH ×2 (08:35→19:24)
[2020-06-06 08:39] LABS: Hematocrit 26 % (35-47); Hemoglobin 9.2 g/dL (12.0-16.0); Mean Platelet Volume 8.9 fL (7.4-10.4); Platelet Count 192 10^3/uL (150-450)
[2020-06-06] MEDS: Vitamin THERAPEUTIC TAB PO SCH (09:46)
[2020-06-06] MEDS: Magnesium Hydroxide LIQ 30 ML UDC PO SCH ×2 (09:46→20:34)
[2020-06-06] MEDS: CMC:Anastrozole 1 mg TAB (NF) PO SCH (09:47)
[2020-06-06] MEDS: Cholecalciferol (VIT D3) 1,000 unit TAB PO SCH (09:47)
[2020-06-06] MEDS: POTASSIUM CITRATE 10 MEQ PO SCH ×2 (09:49→20:35)
[2020-06-06 10:26] LABS: BUN/Creatinine Ratio 29.3 (8-20); Calcium 8.1 mg/dL (8.6-10.3); EGFR African American 53.3 (>60); EGFR Non-African American 44.1 (>60); Potassium 4.3 mmol/L (3.5-5.0)
[2020-06-06] MEDS ORDERED: NS 0.9% 500 ml BAG 500 ML IV ONE (11:22)
[2020-06-06] MEDS ORDERED: Enoxaparin 30 MG/0.3 ML SYR SUBCUT SCH (12:00)
[2020-06-06] MEDS: Lactated Ringers 1000 ml BAG 1,000 ML IV SCH (13:51)
[2020-06-07] MEDS: Ondansetron 4 mg VIAL 2 MG/ML 2 ml VIAL IV PRN (02:38)
[2020-06-07 05:02] LABS: Hematocrit 25 % (35-47); Hemoglobin 8.5 g/dL (12.0-16.0); Mean Platelet Volume 8.5 fL (7.4-10.4); Platelet Count 171 10^3/uL (150-450)
[2020-06-07 05:09] LABS: INR 1.16 (0.82-1.09)
[2020-06-07] MEDS: Magnesium Hydroxide LIQ 30 ML UDC PO SCH ×2 (07:54→20:41)
[2020-06-07] MEDS: Enoxaparin 80 MG/0.8 ML SYR SUBCUT SCH ×2 (08:04→20:39)
[2020-06-07] MEDS: CMC:Anastrozole 1 mg TAB (NF) PO SCH (08:07)
[2020-06-07] MEDS: Vitamin THERAPEUTIC TAB PO SCH (08:07)
[2020-06-07] MEDS: Cholecalciferol (VIT D3) 1,000 unit TAB PO SCH (08:08)
[2020-06-07] MEDS: POTASSIUM CITRATE 10 MEQ PO SCH ×2 (08:09→22:14)
[2020-06-07] MEDS ORDERED: Warfarin DAILY REMINDER **NOTE FOLLOW UP SCH (17:00)
[2020-06-08] MEDS: Morphine 2 MG/ML SYRINGE IV PRN (00:02)
[2020-06-08 04:53] LABS: Hematocrit 21 % (35-47); Hemoglobin 7.4 g/dL (12.0-16.0); Mean Platelet Volume 8.9 fL (7.4-10.4); Platelet Count 156 10^3/uL (150-450)
[2020-06-08 04:57] LABS: INR 1.22 (0.82-1.09)
[2020-06-08] MEDS: CMC:Anastrozole 1 mg TAB (NF) PO SCH (08:41)
[2020-06-08] MEDS: Vitamin THERAPEUTIC TAB PO SCH (08:41)
[2020-06-08] MEDS: Cholecalciferol (VIT D3) 1,000 unit TAB PO SCH (08:42)
[2020-06-08] MEDS: Enoxaparin 80 MG/0.8 ML SYR SUBCUT SCH (08:46)
[2020-06-08] MEDS: Magnesium Hydroxide LIQ 30 ML UDC PO SCH (08:59)
[2020-06-08] MEDS: POTASSIUM CITRATE 10 MEQ PO SCH (09:35)
[2020-06-08] MEDS ORDERED: Furosemide 20 mg/2 ml IV VIAL IV ONE (11:35)
[2020-06-08 15:42] VITALS: BP 114/43
== END 2020-06-08 16:30 | disposition home or self-care (01) | DRG 470 ==
LOC: AA 12:57 → SSU 20:45
PROVIDERS: ADMIT Orthopaedic Surgery Adult Reconstructive Orthopaedic Surgery; ATTEND Orthopaedic Surgery Adult Reconstructive Orthopaedic Surgery

== ENCOUNTER 2020-06-20 09:29 | Inpatient (IN) ==
[2020-06-20] MEDS ORDERED: NS 0.9% 1000 ml BAG 1,000 ML IV ONE (09:40)
[2020-06-20 11:25] LABS: ABS Eosinophils 0.2 10^3/ul (0-0.6); ABS Lymphocytes 1.2 10^3/ul (1.0-4.8); ABS Monocytes 0.6 10^3/ul (0-0.8); ABS Neutrophils 3.2 10^3/ul (1.5-7.7); Eosinophil % 4.1 %; Hematocrit 24 % (35-47); Hemoglobin 8.2 g/dL (12.0-16.0); Mean Corpuscular HGB Conc 34 g/dL (31-36); Mean Corpuscular Hemoglobin 31 pg (27-31); Mean Corpuscular Volume 91 fL (80-97); Mean Platelet Volume 7.4 fL (7.4-10.4); Nucleated Red Blood Cells % 0.1; Platelet Count 514 10^3/uL (150-450); Red Blood Count 2.67 10^6 /uL (3.70-4.87); Red Cell Distribution Width 14 % (10-15); White Blood Count 5.3 10^3/uL (3.5-10.8)
[2020-06-20 11:34] LABS: Activated Partial Thrombo Time 34.8 seconds (26.0-38.0); INR 1.77 (0.82-1.09)
[2020-06-20 11:52] LABS: ALT 13 U/L (7-52); AST 14 U/L (13-39); Albumin 3.3 g/dL (3.2-5.2); Albumin/Globulin Ratio 1.1 (1-3); Alkaline Phosphatase 96 U/L (34-104); Anion Gap 6 mmol/L (2-11); BUN/Creatinine Ratio 18.3 (8-20); Blood Urea Nitrogen 19 mg/dL (6-24); C Reactive Protein 43.79 mg/L (<8.01); CO2 Carbon Dioxide 25 mmol/L (22-32); Calcium 8.5 mg/dL (8.6-10.3); Chloride 100 mmol/L (101-111); EGFR African American 60.5 (>60); Globulin 3.1 g/dL (2-4); Glucose 132 mg/dL (70-100); Potassium 4.6 mmol/L (3.5-5.0); Sodium 131 mmol/L (135-145); Total Protein 6.4 g/dL (6.4-8.9)
[2020-06-20 13:07] LABS: Urine Appearance Clear; Urine Bilirubin Negative (Negative); Urine Blood Negative (Negative); Urine Color Straw; Urine Glucose Negative (Negative); Urine Ketones Negative (Negative); Urine Nitrite Negative (Negative); Urine Protein Negative (Negative); Urine Specific Gravity 1.005 (1.010-1.030); Urine Urobilinogen Negative (Negative)
[2020-06-20] MEDS ORDERED: Senna TAB 8.6 mg TAB PO PRN (15:16)
[2020-06-20] MEDS ORDERED: Ondansetron 4 mg VIAL 2 MG/ML 2 ml VIAL IV PRN (15:16)
[2020-06-20 15:38] LABS: % Iron Saturation 10 % (15-55); Iron 24 ug/dL (50-212); Total Iron Binding Capacity 234 mcg/dL (250-450); Transferrin 167 mg/dL (203-362); Unsaturated Iron Binding < 219 ug/dL
[2020-06-20 15:59] LABS: Ferritin 309.8 ng/mL (11-307)
[2020-06-20] MEDS ORDERED: Cefepime 2 GM IV - ED ONCE IV ONE (16:00)
[2020-06-20] MEDS ORDERED: Cefepime 2 GM in Dextrose 2 GM/50 ML BAG IV SCH (16:00)
[2020-06-20 16:03] LABS: Folate 18.83 ng/mL (>3.99)
[2020-06-20 16:04] LABS: Vitamin B12 166 pg/mL (180-914)
[2020-06-20] MEDS ORDERED: Vancomycin 1,250 MG in NS 0.9% 250 ml 250 ML IVPB ONE (18:00)
[2020-06-20] MEDS ORDERED: Vancomycin per Pharmacy 1 EA NOTE FOLLOW UP PRN (19:06)
[2020-06-20] MEDS: NS 0.9% 1000 ml BAG 1,000 ML IV SCH (19:38)
[2020-06-20] MEDS ORDERED: Potassium Chlor 10 meq TAB PO SCH (21:00)
[2020-06-20] MEDS: POTASSIUM CITRATE 10 MEQ PO SCH (21:36)
[2020-06-20] MEDS: Heparin 5000 UNITS/ML 1 mL VIAL SUBCUT SCH (21:45)
[2020-06-21] MEDS ORDERED: Cefepime 2 GM in Dextrose 2 GM/50 ML BAG IV SCH (06:00)
[2020-06-21] MEDS: Heparin 5000 UNITS/ML 1 mL VIAL SUBCUT SCH ×3 (06:01→21:06)
[2020-06-21 06:06] LABS: ABS Eosinophils 0.2 10^3/ul (0-0.6); ABS Lymphocytes 1.8 10^3/ul (1.0-4.8); ABS Monocytes 0.4 10^3/ul (0-0.8); ABS Neutrophils 2.1 10^3/ul (1.5-7.7); Eosinophil % 4.1 %; Hematocrit 21 % (35-47); Hemoglobin 7.2 g/dL (12.0-16.0); Lymphocyte % 39.7 %; Mean Corpuscular HGB Conc 35 g/dL (31-36); Mean Corpuscular Hemoglobin 31 pg (27-31); Mean Corpuscular Volume 90 fL (80-97); Nucleated Red Blood Cells % 0.1; Platelet Count 459 10^3/uL (150-450); Red Blood Count 2.32 10^6 /uL (3.70-4.87); Red Cell Distribution Width 14 % (10-15); White Blood Count 4.5 10^3/uL (3.5-10.8)
[2020-06-21 06:12] LABS: INR 1.45 (0.82-1.09)
[2020-06-21 06:25] LABS: BUN/Creatinine Ratio 15.3 (8-20); C Reactive Protein 22.12 mg/L (<8.01); Calcium 8.3 mg/dL (8.6-10.3); EGFR African American 64.8 (>60); EGFR Non-African American 53.6 (>60); Potassium 4.2 mmol/L (3.5-5.0)
[2020-06-21] MEDS: CMCS: Anastrozole 1 mg TAB (NF) PO SCH (10:22)
[2020-06-21] MEDS: POTASSIUM CITRATE 10 MEQ PO SCH ×2 (11:20→21:06)
[2020-06-21] MEDS: NS 0.9% 1000 ml BAG 1,000 ML IV SCH (12:45)
[2020-06-21] MEDS ORDERED: Vancomycin 1,000 MG in NS 0.9% 250 ml 250 ML IV SCH (16:00)
[2020-06-22] MEDS ORDERED: diPHENhydraMINE 25 mg TAB PO ONE (00:41)
[2020-06-22] MEDS: Heparin 5000 UNITS/ML 1 mL VIAL SUBCUT SCH ×2 (05:17→14:50)
[2020-06-22 06:50] LABS: ABS Eosinophils 0.3 10^3/ul (0-0.6); ABS Lymphocytes 2.2 10^3/ul (1.0-4.8); ABS Monocytes 0.5 10^3/ul (0-0.8); ABS Neutrophils 2.3 10^3/ul (1.5-7.7); Eosinophil % 5.5 %; Hematocrit 22 % (35-47); Hemoglobin 7.6 g/dL (12.0-16.0); Lymphocyte % 41.8 %; Mean Corpuscular HGB Conc 35 g/dL (31-36); Mean Corpuscular Hemoglobin 31 pg (27-31); Mean Corpuscular Volume 89 fL (80-97); Mean Platelet Volume 7.4 fL (7.4-10.4); Platelet Count 470 10^3/uL (150-450); Red Blood Count 2.46 10^6 /uL (3.70-4.87); Red Cell Distribution Width 14 % (10-15); White Blood Count 5.3 10^3/uL (3.5-10.8)
[2020-06-22 07:11] LABS: BUN/Creatinine Ratio 13.8 (8-20); Calcium 8.8 mg/dL (8.6-10.3); EGFR Non-African American 56.2 (>60); Potassium 4.2 mmol/L (3.5-5.0)
[2020-06-22] MEDS: POTASSIUM CITRATE 10 MEQ PO SCH (10:51)
[2020-06-22] MEDS: CMCS: Anastrozole 1 mg TAB (NF) PO SCH (10:51)
[2020-06-22 12:37] VITALS: BP 124/50
[2020-06-23] MEDS ORDERED: Vancomycin Trough Check NOTE FOLLOW UP ONE (15:30)
== END 2020-06-22 16:00 | disposition home or self-care (01) | DRG 864 ==
LOC: ED 09:29 → MED 15:16
PROVIDERS: ADMIT Internal Medicine; ATTEND Internal Medicine

== ENCOUNTER 2021-03-03 13:41 | Inpatient (IN) ==
[2021-03-03] MEDS ORDERED: NS 0.9% 1000 ml BAG 1,000 ML IV ONE ×2 (14:02→17:10)
[2021-03-03 14:09] LABS: ABS Basophils 0.1 10^3/ul (0-0.2); ABS Lymphocytes 2.6 10^3/ul (1.0-4.8); ABS Monocytes 0.5 10^3/ul (0-0.8); ABS Neutrophils 8.6 10^3/ul (1.5-7.7); Eosinophil % 0.3 %; Hematocrit 43 % (35-47); Hemoglobin 13.5 g/dL (12.0-16.0); Lymphocyte % 22.1 %; Mean Corpuscular HGB Conc 32 g/dL (31-36); Mean Corpuscular Hemoglobin 31 pg (27-31); Mean Corpuscular Volume 97 fL (80-97); Mean Platelet Volume 8.7 fL (7.4-10.4); Nucleated Red Blood Cells % 0.1; Platelet Count 210 10^3/uL (150-450); Red Blood Count 4.42 10^6 /uL (3.70-4.87); Red Cell Distribution Width 14 % (10-15); White Blood Count 11.8 10^3/uL (3.5-10.8)
[2021-03-03 14:12] LABS: INR 1.08 (0.82-1.09)
[2021-03-03 14:24] LABS: ALT 6 U/L (7-52); Albumin 3.9 g/dL (3.2-5.2); Albumin/Globulin Ratio 1.3 (1-3); Alkaline Phosphatase 97 U/L (34-104); Blood Urea Nitrogen 22 mg/dL (6-24); Calcium 9.6 mg/dL (8.6-10.3); Chloride 100 mmol/L (101-111); EGFR African American 46.7 (>60); EGFR Non-African American 38.6 (>60); Glucose 387 mg/dL (70-100); Sodium 134 mmol/L (135-145); Total Protein 6.9 g/dL (6.4-8.9)
[2021-03-03 14:27] LABS: CO2 Carbon Dioxide 13 mmol/L (22-32); Troponin I 0.18 ng/mL (<0.03)
[2021-03-03 14:29] LABS: Activated Partial Thrombo Time 27.6 seconds (26.0-38.0)
[2021-03-03 14:35] LABS: C Reactive Protein 18.48 mg/L (<8.01); Magnesium 1.7 mg/dL (1.9-2.7)
[2021-03-03] MEDS ORDERED: Magnesium Sulfate 2 gm BAG 2 GM/50 ML BAG IVPB ONE (14:40)
[2021-03-03 15:13] LABS: Anion Gap 21 mmol/L (2-11)
[2021-03-03 15:58] LABS: Urine Appearance Cloudy; Urine Bilirubin Negative (Negative); Urine Blood 1+ (Negative); Urine Color Yellow; Urine Glucose 3+(>=500 mg/dL) (Negative); Urine Ketones 1+ (Negative); Urine Nitrite Negative (Negative); Urine Protein 2+(100 mg/dL) (Negative); Urine Specific Gravity 1.013 (1.002-1.030); Urine Urobilinogen Negative (Negative)
[2021-03-03 16:02] LABS: Urine Bacteria 2+ (Absent); Urine Granular Casts Present (Absent); Urine Red Blood Cell 2+(6-10/hpf) (Absent); Urine Squamous Epithelial Cell Present (Absent); Urine Waxy Casts Present (Absent); Urine White Blood Cell 3+(>20/hpf) (Absent)
[2021-03-03] MEDS ORDERED: Ondansetron 4 mg VIAL 2 MG/ML 2 ml VIAL IV ONE (16:16)
[2021-03-03] MEDS ORDERED: Cefepime 1 GM in Dextrose 1 GM/50 ML BAG IV ONE (16:16)
[2021-03-03 16:43] LABS: AST Redraw 25 U/L (13-39); Potassium Redraw 4.2 mmol/L (3.5-5.0)
[2021-03-03 16:46] LABS: Troponin I 0.16 ng/mL (<0.03)
[2021-03-03 17:18] LABS: Calcium 9.2 mg/dL (8.6-10.3); Potassium 4.2 mmol/L (3.5-5.0)
[2021-03-03 17:23] LABS: EGFR African American 46.7 (>60); EGFR Non-African American 38.6 (>60)
[2021-03-03] MEDS ORDERED: Lactated Ringers 1000 ml BAG 1,000 ML IV ONE (17:29)
[2021-03-03] MEDS ORDERED: Dextrose 50% Syringe 50 ml 25 GM/50 ML SYRINGE IV PUSH PRN (17:31)
[2021-03-03] MEDS ORDERED: NS 0.9% 500 ml BAG 500 ML IV ONE (18:18)
[2021-03-03] MEDS ORDERED: Ondansetron 4 mg VIAL 2 MG/ML 2 ml VIAL IV PRN (18:18)
[2021-03-03] MEDS ORDERED: Piperacillin/Tazobac ADVAN 3.375 GM in NS 0.9% 100 ml BAG 100 ML IV ONE (18:19)
[2021-03-03] MEDS ORDERED: Lactated Ringers 1000 ml BAG 1,000 ML IV SCH (19:00)
[2021-03-03] MEDS ORDERED: Zosyn per Pharmacy NOTE FOLLOW UP SCH (19:00)
[2021-03-03 20:15] LABS: Anion Gap 11 mmol/L (2-11); Blood Urea Nitrogen 23 mg/dL (6-24); CO2 Carbon Dioxide 22 mmol/L (22-32); Calcium 8.9 mg/dL (8.6-10.3); Chloride 103 mmol/L (101-111); EGFR African American 50.7 (>60); EGFR Non-African American 41.9 (>60); Glucose 256 mg/dL (70-100); Potassium 4.1 mmol/L (3.5-5.0); Sodium 136 mmol/L (135-145)
[2021-03-03] MEDS: Enoxaparin 30 MG/0.3 ML SYR SUBCUT SCH (22:28)
[2021-03-03] MEDS: ZOSYN 3.375 GM Q8H per EXTENDED INFUSION IV SCH (22:58)
[2021-03-03] MEDS: Calcium Carb (TUMS) 500 mg CHEW TAB PO SCH (23:05)
[2021-03-03 23:21] LABS: Troponin I 0.44 ng/mL (<0.03)
[2021-03-04 03:19] LABS: ABS Lymphocytes 2.1 10^3/ul (1.0-4.8); ABS Monocytes 0.7 10^3/ul (0-0.8); ABS Neutrophils 6.4 10^3/ul (1.5-7.7); Eosinophil % 0.2 %; Hematocrit 32 % (35-47); Hemoglobin 10.6 g/dL (12.0-16.0); Lymphocyte % 22.5 %; Mean Corpuscular HGB Conc 33 g/dL (31-36); Mean Corpuscular Hemoglobin 31 pg (27-31); Mean Corpuscular Volume 93 fL (80-97); Mean Platelet Volume 7.9 fL (7.4-10.4); Platelet Count 154 10^3/uL (150-450); Red Blood Count 3.46 10^6 /uL (3.70-4.87); Red Cell Distribution Width 14 % (10-15); White Blood Count 9.1 10^3/uL (3.5-10.8)
[2021-03-04] MEDS ORDERED: Al Hydrox/Mg Hydrox/Simet LIQ 30 ML UDC PO ONE (03:32)
[2021-03-04 03:34] LABS: Anion Gap 9 mmol/L (2-11); Blood Urea Nitrogen 24 mg/dL (6-24); CO2 Carbon Dioxide 22 mmol/L (22-32); Calcium 8.6 mg/dL (8.6-10.3); Chloride 104 mmol/L (101-111); EGFR African American 42.8 (>60); EGFR Non-African American 35.4 (>60); Glucose 118 mg/dL (70-100); Potassium 3.7 mmol/L (3.5-5.0); Sodium 135 mmol/L (135-145)
[2021-03-04 03:42] LABS: Troponin I 0.46 ng/mL (<0.03)
[2021-03-04] MEDS ORDERED: Lactated Ringers 500 ml BAG 500 ML IV SCH (05:00)
[2021-03-04] MEDS ORDERED: NS 0.9% 1000 ml BAG 1,000 ML IV ONE (05:57)
[2021-03-04] MEDS: ZOSYN 3.375 GM Q8H per EXTENDED INFUSION IV SCH ×3 (06:48→23:10)
[2021-03-04 07:28] LABS: Troponin I 0.42 ng/mL (<0.03)
[2021-03-04] MEDS: Calcium Carb (TUMS) 500 mg CHEW TAB PO SCH ×2 (09:19→20:25)
[2021-03-04] MEDS: CMCS: Anastrozole 1 mg TAB (NF) PO SCH (09:19)
[2021-03-04] MEDS: Enoxaparin 30 MG/0.3 ML SYR SUBCUT SCH (20:25)
[2021-03-04] MEDS ORDERED: Lactated Ringers 1000 ml BAG 1,000 ML IV SCH ×2 (20:49→21:00)
[2021-03-05 04:56] LABS: ABS Basophils 0.1 10^3/ul (0-0.2); ABS Eosinophils 0.1 10^3/ul (0-0.6); ABS Lymphocytes 2.8 10^3/ul (1.0-4.8); ABS Monocytes 0.5 10^3/ul (0-0.8); ABS Neutrophils 4.7 10^3/ul (1.5-7.7); Eosinophil % 1.8 %; Hematocrit 34 % (35-47); Hemoglobin 11.4 g/dL (12.0-16.0); Lymphocyte % 34.1 %; Mean Corpuscular HGB Conc 34 g/dL (31-36); Mean Corpuscular Hemoglobin 31 pg (27-31); Mean Corpuscular Volume 92 fL (80-97); Mean Platelet Volume 8.4 fL (7.4-10.4); Platelet Count 151 10^3/uL (150-450); Red Blood Count 3.63 10^6 /uL (3.70-4.87); Red Cell Distribution Width 14 % (10-15); White Blood Count 8.2 10^3/uL (3.5-10.8)
[2021-03-05 05:14] LABS: Calcium 8.9 mg/dL (8.6-10.3); EGFR African American 42.8 (>60); EGFR Non-African American 35.4 (>60); Potassium 3.9 mmol/L (3.5-5.0)
[2021-03-05] MEDS: ZOSYN 3.375 GM Q8H per EXTENDED INFUSION IV SCH ×3 (06:17→23:15)
[2021-03-05] MEDS: Calcium Carb (TUMS) 500 mg CHEW TAB PO SCH ×2 (09:56→21:49)
[2021-03-05] MEDS: CMCS: Anastrozole 1 mg TAB (NF) PO SCH (09:56)
[2021-03-05] MEDS: Enoxaparin 30 MG/0.3 ML SYR SUBCUT SCH (21:49)
[2021-03-06 05:55] LABS: ABS Basophils 0.1 10^3/ul (0-0.2); ABS Eosinophils 0.3 10^3/ul (0-0.6); ABS Lymphocytes 2.4 10^3/ul (1.0-4.8); ABS Monocytes 0.5 10^3/ul (0-0.8); ABS Neutrophils 4.7 10^3/ul (1.5-7.7); Eosinophil % 3.5 %; Hematocrit 34 % (35-47); Hemoglobin 11.7 g/dL (12.0-16.0); Lymphocyte % 29.8 %; Mean Corpuscular HGB Conc 34 g/dL (31-36); Mean Corpuscular Hemoglobin 31 pg (27-31); Mean Corpuscular Volume 92 fL (80-97); Mean Platelet Volume 8.4 fL (7.4-10.4); Platelet Count 188 10^3/uL (150-450); Red Blood Count 3.75 10^6 /uL (3.70-4.87); Red Cell Distribution Width 14 % (10-15); White Blood Count 7.9 10^3/uL (3.5-10.8)
[2021-03-06] MEDS: ZOSYN 3.375 GM Q8H per EXTENDED INFUSION IV SCH ×3 (06:05→22:44)
[2021-03-06 06:23] LABS: Calcium 8.9 mg/dL (8.6-10.3); EGFR Non-African American 46.3 (>60); Potassium 3.7 mmol/L (3.5-5.0)
[2021-03-06] MEDS: Calcium Carb (TUMS) 500 mg CHEW TAB PO SCH ×2 (08:22→20:06)
[2021-03-06] MEDS: CMCS: Anastrozole 1 mg TAB (NF) PO SCH (08:22)
[2021-03-06] MEDS: Enoxaparin 30 MG/0.3 ML SYR SUBCUT SCH (20:06)
[2021-03-07 06:06] LABS: Calcium 8.8 mg/dL (8.6-10.3); EGFR African American 57.8 (>60); EGFR Non-African American 47.8 (>60); Potassium 3.7 mmol/L (3.5-5.0)
[2021-03-07 06:14] LABS: ABS Basophils 0.1 10^3/ul (0-0.2); ABS Eosinophils 0.4 10^3/ul (0-0.6); ABS Lymphocytes 2.1 10^3/ul (1.0-4.8); ABS Monocytes 0.4 10^3/ul (0-0.8); ABS Neutrophils 4.4 10^3/ul (1.5-7.7); Hematocrit 35 % (35-47); Hemoglobin 11.6 g/dL (12.0-16.0); Lymphocyte % 28.5 %; Mean Corpuscular HGB Conc 34 g/dL (31-36); Mean Corpuscular Hemoglobin 31 pg (27-31); Mean Corpuscular Volume 93 fL (80-97); Mean Platelet Volume 8.6 fL (7.4-10.4); Nucleated Red Blood Cells % 0.1; Platelet Count 198 10^3/uL (150-450); Red Blood Count 3.71 10^6 /uL (3.70-4.87); Red Cell Distribution Width 14 % (10-15); White Blood Count 7.4 10^3/uL (3.5-10.8)
[2021-03-07] MEDS: ZOSYN 3.375 GM Q8H per EXTENDED INFUSION IV SCH (06:47)
[2021-03-07] MEDS: CMCS: Anastrozole 1 mg TAB (NF) PO SCH (08:23)
[2021-03-07] MEDS: Calcium Carb (TUMS) 500 mg CHEW TAB PO SCH ×2 (08:23→20:03)
[2021-03-07] MEDS: Enoxaparin 30 MG/0.3 ML SYR SUBCUT SCH (20:02)
[2021-03-08] MEDS: diPHENhydraMINE 25 mg TAB PO PRN (03:50)
[2021-03-08 08:15] LABS: ABS Eosinophils 0.3 10^3/ul (0-0.6); ABS Lymphocytes 1.6 10^3/ul (1.0-4.8); ABS Monocytes 0.4 10^3/ul (0-0.8); ABS Neutrophils 4.2 10^3/ul (1.5-7.7); Eosinophil % 5.1 %; Hematocrit 35 % (35-47); Hemoglobin 11.8 g/dL (12.0-16.0); Lymphocyte % 23.6 %; Mean Corpuscular HGB Conc 34 g/dL (31-36); Mean Corpuscular Hemoglobin 31 pg (27-31); Mean Corpuscular Volume 92 fL (80-97); Mean Platelet Volume 8.6 fL (7.4-10.4); Nucleated Red Blood Cells % 0.1; Platelet Count 226 10^3/uL (150-450); Red Blood Count 3.82 10^6 /uL (3.70-4.87); Red Cell Distribution Width 14 % (10-15); White Blood Count 6.6 10^3/uL (3.5-10.8)
[2021-03-08] MEDS: CMCS: Anastrozole 1 mg TAB (NF) PO SCH (08:33)
[2021-03-08] MEDS: Calcium Carb (TUMS) 500 mg CHEW TAB PO SCH ×2 (08:33→20:50)
[2021-03-08 08:34] LABS: EGFR African American 71.3 (>60); Potassium 3.9 mmol/L (3.5-5.0)
[2021-03-08] MEDS: Enoxaparin 30 MG/0.3 ML SYR SUBCUT SCH (20:49)
[2021-03-09] MEDS: diPHENhydraMINE 25 mg TAB PO PRN ×2 (05:25→20:35)
[2021-03-09] MEDS: Calcium Carb (TUMS) 500 mg CHEW TAB PO SCH ×2 (08:24→20:35)
[2021-03-09] MEDS: CMCS: Anastrozole 1 mg TAB (NF) PO SCH (08:24)
[2021-03-09] MEDS: Enoxaparin 30 MG/0.3 ML SYR SUBCUT SCH (20:34)
[2021-03-10] MEDS: CMCS: Anastrozole 1 mg TAB (NF) PO SCH (08:15)
[2021-03-10] MEDS: Calcium Carb (TUMS) 500 mg CHEW TAB PO SCH ×2 (08:16→21:52)
[2021-03-10] MEDS: Enoxaparin 30 MG/0.3 ML SYR SUBCUT SCH (21:53)
[2021-03-10] MEDS: diPHENhydraMINE 25 mg TAB PO PRN (21:58)
[2021-03-11] MEDS: Calcium Carb (TUMS) 500 mg CHEW TAB PO SCH (10:16)
[2021-03-11] MEDS: CMCS: Anastrozole 1 mg TAB (NF) PO SCH (10:16)
[2021-03-11 12:17] VITALS: BP 147/80
== END 2021-03-11 15:40 | DRG 872 ==
LOC: ED 13:41 → MEDTELE 19:45
PROVIDERS: ADMIT Hospitalist; ATTEND Hospitalist